=== PATIENT | female | born 1950 | race Caucasian/White ===

== ENCOUNTER 2019-03-23 06:56 | Outpatient (CLI) | payer MEDICARE, SELFPAY ==
[2019-03-23 08:01] LABS: Hemoglobin A1C 6.5 % (<5.7)
[2019-03-23 08:20] LABS: Alanine Aminotransferase 27 U/L (4-35); Albumin Level 4.4 g/dL (3.5-5.1); Alkaline Phosphatase 70 U/L (38-126); Aspartate Amino Transferase 24 U/L (14-36); Bilirubin,Total 0.4 mg/dL (0.2-1.3); Blood Urea Nitrogen 25 mg/dL (7-17); Calcium 9.2 mg/dL (8.4-10.2); Carbon Dioxide 27 mmol/L (22-30); Chloride 100 mmol/L (98-107); Cholesterol 139 mg/dL (0-200); Estimated Glomerular Filt Rate 44; Glucose 123 mg/dL (65-105); HDL Direct 33 mg/dL; Potassium 4.1 mmol/L (3.4-5.0); Sodium 141 mmol/L (137-145); Triglycerides 162 mg/dL (<150)
[2019-03-23 08:31] LABS: LDL Cholesterol Direct 79 mg/dL
== END 2019-03-23 06:57 | disposition home or self-care (01) ==
DX: E78.2 Mixed hyperlipidemia (principal); E11.9 Type 2 diabetes mellitus without complications; E66.9 Obesity, unspecified; I10 Essential (primary) hypertension
CPT/HCPCS: 36415; 80053; 80061; 82607; 83036; 84443

== ENCOUNTER 2021-01-06 06:45 | Outpatient (CLI) | payer MEDICARE, SELFPAY ==
[2021-01-06 08:44] LABS: Basophils Absolute Auto 0.1 K/mm3 (0.0-0.1); Basophils Percent Auto 0.9 % (0.2-1.2); Eosinophils Absolute Auto 0.2 K/mm3 (0-0.3); Eosinophils Percent Auto 2.3 % (0-4.4); Hematocrit 43.8 % (37.0-47.0); Hemoglobin 14.6 g/dL (12.0-15.0); Immature Granulocyte Absolute 0.04 K/mm3 (0.00-0.031); Immature Granulocyte Percent A 0.6 % (0-0.5); Lymphocytes Absolute Auto 2.26 K/mm3 (0.9-3.2); Lymphocytes Percent Auto 32.4 % (18.3-44.2); Mean Corpuscular HGB Conc 33.3 g/dl (32-36); Mean Corpuscular Hemoglobin 32.4 pg (26-34); Mean Corpuscular Volume 97.3 fl (80-100); Mean Platelet Volume 10.7 fl (7.4-10.4); Monocytes Absolute Auto 0.6 K/mm3 (0.1-0.6); Monocytes Percent Auto 8.3 % (2.6-8.5); Neutrophils Absolute Auto 3.9 K/mm3 (1.3-6.7); Neutrophils Percent Auto 55.5 % (45.5-73.1); Platelet Count Result 212 k/mm3 (150-375); Red Cell Distribution Width 13.1 % (11.5-14.5)
[2021-01-06 09:01] LABS: Add Urine Microscopic? YES; Appearance Urine Cloudy (Clear); Bacteria Urine 2+ /hpf; Bilirubin Urine Negative (Negative); Blood Urine 1+ (Negative); Color Urine Yellow (Yellow); Glucose Urine UA Negative (Negative); Ketones Urine Negative (Negative); Leukocyte Esterase Ur 3+ LEU/UL (NEGATIVE); Mucus Urine Rare /lpf; Nitrate Urine Positive (Negative); Protein Urine Negative (Negative); Specific Grav Ur 1.015 (1.001-1.035); Squamous Epithelial Cell Urine Rare /hpf (Few); Urobilinogen Urine Negative mg/dL (<2.0); WBC Clumps Urine Present /HPF; WBC Urine >75 /hpf (0-3)
[2021-01-06 09:08] LABS: Alanine Aminotransferase 31 U/L (4-35); Albumin Level 4.4 g/dL (3.5-5.1); Alkaline Phosphatase 84 U/L (38-126); Anion Gap 7 mmol/L (8-16); Aspartate Amino Transferase 26 U/L (14-36); Bilirubin,Total 0.5 mg/dL (0.2-1.3); Blood Urea Nitrogen 26 mg/dL (7-17); Calcium 9.3 mg/dL (8.4-10.2); Carbon Dioxide 29 mmol/L (22-30); Chloride 103 mmol/L (98-107); Cholesterol 141 mg/dL (0-200); Estimated Glomerular Filt Rate 37; Glucose 154 mg/dL (65-110); HDL Direct 29 mg/dL; Potassium 4.4 mmol/L (3.4-5.0); Sodium 139 mmol/L (137-145); Triglycerides 162 mg/dL (<150)
[2021-01-06 09:31] LABS: LDL Cholesterol Direct 86 mg/dL
[2021-01-06 09:58] LABS: Hemoglobin A1C 6.5 % (<5.7)
== END 2021-01-06 06:46 | disposition home or self-care (01) ==
LOC: ANHLAB 06:49
PROVIDERS: Visit Provider Family Medicine Sports Medicine
DX: E78.5 Hyperlipidemia, unspecified (principal); E11.9 Type 2 diabetes mellitus without complications; I10 Essential (primary) hypertension
CPT/HCPCS: 36415; 80053; 80061; 81001; 83036; 84443; 85025

== ENCOUNTER 2022-02-17 06:40 | Outpatient (CLI) | payer MEDICARE, SELFPAY ==
[2022-02-17 07:41] LABS: Basophils Absolute Auto 0.1 K/mm3 (0.0-0.1); Eosinophils Absolute Auto 0.2 K/mm3 (0-0.3); Eosinophils Percent Auto 3.2 % (0-4.4); Hematocrit 43.9 % (37.0-47.0); Hemoglobin 14.2 g/dL (12.0-15.0); Immature Granulocyte Absolute 0.04 K/mm3 (0.00-0.031); Immature Granulocyte Percent A 0.6 % (0-0.5); Lymphocytes Absolute Auto 1.94 K/mm3 (0.9-3.2); Mean Corpuscular HGB Conc 32.3 g/dl (32-36); Mean Corpuscular Hemoglobin 31.1 pg (26-34); Mean Corpuscular Volume 96.1 fl (80-100); Monocytes Absolute Auto 0.6 K/mm3 (0.1-0.6); Monocytes Percent Auto 8.9 % (2.6-8.5); Neutrophils Absolute Auto 3.5 K/mm3 (1.3-6.7); Neutrophils Percent Auto 55.3 % (45.5-73.1); Platelet Count Result 203 k/mm3 (150-375); Red Blood Count 4.57 M/mm3 (4.2-5.4); Red Cell Distribution Width 14.5 % (11.5-14.5); White Blood Count 6.3 K/mm3 (4.5-10.0)
[2022-02-17 07:51] LABS: Alanine Aminotransferase 37 U/L (6-35); Albumin Level 4.5 g/dL (3.5-5.1); Alkaline Phosphatase 74 U/L (38-126); Anion Gap 9 mmol/L (8-16); Aspartate Amino Transferase 26 U/L (14-36); Bilirubin,Total 0.5 mg/dL (0.2-1.3); Blood Urea Nitrogen 26 mg/dL (7-17); Calcium 8.8 mg/dL (8.4-10.2); Carbon Dioxide 27 mmol/L (22-30); Chloride 105 mmol/L (98-107); Cholesterol 166 mg/dL (0-200); Estimated Glomerular Filt Rate 40; Glucose 166 mg/dL (65-110); HDL Direct 34 mg/dL; Potassium 4.3 mmol/L (3.4-5.0); Sodium 141 mmol/L (137-145); Triglycerides 187 mg/dL (<150)
[2022-02-17 07:53] LABS: Add Urine Microscopic? YES; Appearance Urine Cloudy (Clear); Bilirubin Urine Negative (Negative); Blood Urine 1+ (Negative); Color Urine Yellow (Yellow); Glucose Urine UA Negative (Negative); Ketones Urine Negative (Negative); Leukocyte Esterase Ur 1+ LEU/UL (Negative); Nitrate Urine Negative (Negative); Protein Urine Trace mg/dL (Negative); Specific Grav Ur 1.025 (1.001-1.035); Urobilinogen Urine 0.2 mg/dL (<2.0)
[2022-02-17 08:02] LABS: LDL Cholesterol Direct 85 mg/dL
[2022-02-17 08:39] LABS: Bacteria Urine 1+ /hpf; Mucus Urine Rare /lpf; Squamous Epithelial Cell Urine Moderate /hpf (Few); WBC Clumps Urine Present /HPF; WBC Urine >75 /hpf
[2022-02-17 08:57] LABS: Folic Acid 10.3 ng/mL (2.76->20)
== END 2022-02-17 06:41 | disposition home or self-care (01) ==
PROVIDERS: Visit Provider Family Medicine Sports Medicine
DX: R53.83 Other fatigue (principal); I10 Essential (primary) hypertension; E78.5 Hyperlipidemia, unspecified
CPT/HCPCS: 36415; 80053; 80061; 81001; 82607; 82746; 84443; 85025; 87077; 87086; 87186

== ENCOUNTER 2022-08-20 07:55 | Outpatient (CLI) | payer MEDICARE, SELFPAY ==
[2022-08-20 09:03] LABS: Basophils Absolute Auto 0.1 K/mm3 (0.0-0.1); Eosinophils Absolute Auto 0.2 K/mm3 (0-0.3); Eosinophils Percent Auto 2.8 % (0-4.4); Hematocrit 43.3 % (37.0-47.0); Hemoglobin 14.2 g/dL (12.0-15.0); Immature Granulocyte Absolute 0.05 K/mm3 (0.00-0.031); Immature Granulocyte Percent A 0.7 % (0-0.5); Lymphocytes Percent Auto 35.4 % (18.3-44.2); Mean Corpuscular HGB Conc 32.8 g/dl (32-36); Mean Corpuscular Hemoglobin 30.9 pg (26-34); Mean Corpuscular Volume 94.3 fl (80-100); Mean Platelet Volume 10.1 fl (7.4-10.4); Monocytes Absolute Auto 0.5 K/mm3 (0.1-0.6); Monocytes Percent Auto 7.8 % (2.6-8.5); Neutrophils Absolute Auto 3.5 K/mm3 (1.3-6.7); Neutrophils Percent Auto 52.3 % (45.5-73.1); Platelet Count Result 216 k/mm3 (150-375); Red Blood Count 4.59 M/mm3 (4.2-5.4); Red Cell Distribution Width 14.1 % (11.5-14.5); White Blood Count 6.8 K/mm3 (4.5-10.0)
[2022-08-20 09:08] LABS: Appearance Urine Clear (Clear); Bacteria Urine Rare /hpf; Bilirubin Urine Negative (Negative); Blood Urine Negative (Negative); Color Urine Yellow (Yellow); Glucose Urine UA Negative (Negative); Ketones Urine Negative (Negative); Leukocyte Esterase Ur 2+ LEU/UL (Negative); Nitrate Urine Negative (Negative); Protein Urine Negative (Negative); RBC Urine 0-2 /hpf (0-2); Specific Grav Ur 1.014 (1.001-1.035); Squamous Epithelial Cell Urine Few /hpf (Few); Urobilinogen Urine 0.2 mg/dL (<2.0); WBC Urine 51-100 /hpf; pH Urine 5.5 (5.0-9.0)
[2022-08-20 09:11] LABS: Add Urine Microscopic? YES
[2022-08-20 09:22] LABS: Alanine Aminotransferase 31 U/L (6-35); Albumin Level 4.5 g/dL (3.5-5.1); Alkaline Phosphatase 87 U/L (38-126); Anion Gap 8 mmol/L (8-16); Aspartate Amino Transferase 26 U/L (14-36); Bilirubin,Total 0.4 mg/dL (0.2-1.3); Blood Urea Nitrogen 33 mg/dL (7-17); Calcium 8.8 mg/dL (8.4-10.2); Carbon Dioxide 25 mmol/L (22-30); Chloride 104 mmol/L (98-107); Cholesterol 132 mg/dL (0-200); Estimated Glomerular Filt Rate 37; Glucose 144 mg/dL (65-110); HDL Direct 31 mg/dL; Potassium 4.6 mmol/L (3.4-5.0); Sodium 137 mmol/L (137-145); Triglycerides 130 mg/dL (<150)
[2022-08-20 09:24] LABS: Hemoglobin A1C 7.2 % (<5.7)
[2022-08-20 09:35] LABS: LDL Cholesterol Direct 70 mg/dL
[2022-08-20 09:36] LABS: Free T4 Free Thyroxine 1.21 ng/mL (0.78-2.19)
[2022-08-20 09:38] LABS: Creatinine Urine 73.9 mg/dL
[2022-08-20 09:42] LABS: MALB Creatinine Ratio 46.3 mg/g (0-30); Microalbumin Urine Random 34.2 mg/L (0-16.7)
[2022-08-20 10:25] LABS: Folic Acid 4.8 ng/mL (2.76->20)
== END 2022-08-20 07:56 | disposition home or self-care (01) ==
DX: N39.0 Urinary tract infection, site not specified (principal); I10 Essential (primary) hypertension; F41.9 Anxiety disorder, unspecified; R73.09 Other abnormal glucose
CPT/HCPCS: 36415; 80053; 80061; 81001; 82043; 82607; 82746; 83036; 84439; 84443; 85025; 87086; 87088

== ENCOUNTER 2022-12-03 06:50 | Outpatient (CLI) | payer MEDICARE, SELFPAY ==
[2022-12-03 07:40] LABS: Basophils Absolute Auto 0.1 K/mm3 (0.0-0.1); Basophils Percent Auto 1.1 % (0.2-1.2); Eosinophils Absolute Auto 0.2 K/mm3 (0-0.3); Eosinophils Percent Auto 2.4 % (0-4.4); Hematocrit 44.2 % (37.0-47.0); Hemoglobin 14.3 g/dL (12.0-15.0); Immature Granulocyte Absolute 0.03 K/mm3 (0.00-0.031); Immature Granulocyte Percent A 0.5 % (0-0.5); Lymphocytes Absolute Auto 2.01 K/mm3 (0.9-3.2); Lymphocytes Percent Auto 30.7 % (18.3-44.2); Mean Corpuscular HGB Conc 32.4 g/dl (32-36); Mean Corpuscular Hemoglobin 30.7 pg (26-34); Mean Corpuscular Volume 94.8 fl (80-100); Mean Platelet Volume 9.9 fl (7.4-10.4); Monocytes Absolute Auto 0.6 K/mm3 (0.1-0.6); Monocytes Percent Auto 8.6 % (2.6-8.5); Neutrophils Absolute Auto 3.7 K/mm3 (1.3-6.7); Neutrophils Percent Auto 56.7 % (45.5-73.1); Platelet Count Result 220 k/mm3 (150-375); Red Blood Count 4.66 M/mm3 (4.2-5.4); Red Cell Distribution Width 14.8 % (11.5-14.5); White Blood Count 6.5 K/mm3 (4.5-10.0)
[2022-12-03 07:51] LABS: Alanine Aminotransferase 33 U/L (6-35); Albumin Level 4.6 g/dL (3.5-5.1); Alkaline Phosphatase 69 U/L (38-126); Anion Gap 8 mmol/L (8-16); Aspartate Amino Transferase 30 U/L (14-36); Bilirubin,Total 0.5 mg/dL (0.2-1.3); Blood Urea Nitrogen 24 mg/dL (7-17); Carbon Dioxide 26 mmol/L (22-30); Chloride 103 mmol/L (98-107); Cholesterol 130 mg/dL (0-200); Estimated Glomerular Filt Rate 44; Glucose 133 mg/dL (65-110); HDL Direct 31 mg/dL; Phosphorus 3.9 mg/dL (2.5-4.5); Potassium 4.6 mmol/L (3.4-5.0); Sodium 137 mmol/L (137-145); Triglycerides 106 mg/dL (<150)
[2022-12-03 07:54] LABS: Hemoglobin A1C 6.2 % (<5.7)
[2022-12-03 08:01] LABS: LDL Cholesterol Direct 72 mg/dL
[2022-12-03 08:07] LABS: Appearance Urine Cloudy (Clear); Bacteria Urine Rare /hpf; Bilirubin Urine Negative (Negative); Blood Urine Negative (Negative); Color Urine Yellow (Yellow); Glucose Urine UA Negative (Negative); Ketones Urine Negative (Negative); Leukocyte Esterase Ur 2+ LEU/UL (Negative); Nitrate Urine Negative (Negative); Non Pathogenic Casts 0-2; Protein Urine 1+ mg/dL (Negative); RBC Urine 0-2 /hpf (0-2); Specific Grav Ur 1.015 (1.001-1.035); Squamous Epithelial Cell Urine Occasional /hpf (Few); Urobilinogen Urine 0.2 mg/dL (<2.0); WBC Urine 21-50 /hpf
[2022-12-03 08:17] LABS: Free T4 Free Thyroxine 1.29 ng/mL (0.78-2.19); Vitamin D 25 Hydroxy 35.6 ng/mL
[2022-12-03 08:22] LABS: Add Urine Microscopic? YES
[2022-12-03 08:58] LABS: Vitamin B12 > 1000.0 pg/mL (239-931)
== END 2022-12-03 06:51 | disposition home or self-care (01) ==
PROVIDERS: Visit Provider Family Medicine Sports Medicine
DX: I12.9 Hypertensive chronic kidney disease with stage 1 through stage 4 chronic kidney disease, or unspecified chronic kidney disease (principal); N18.9 Chronic kidney disease, unspecified; E11.22 Type 2 diabetes mellitus with diabetic chronic kidney disease; F41.9 Anxiety disorder, unspecified; E55.9 Vitamin D deficiency, unspecified; N17.9 Acute kidney failure, unspecified
CPT/HCPCS: 36415; 80053; 80061; 81001; 82306; 82607; 82746; 83036; 84100; 84439; 84443; 85025; 87077; 87086; 87186

== ENCOUNTER 2023-05-04 06:40 | Outpatient (CLI) | payer MEDICARE, SELFPAY ==
[2023-05-04 07:14] LABS: Basophils Absolute Auto 0.1 K/mm3 (0.0-0.1); Eosinophils Absolute Auto 0.2 K/mm3 (0-0.3); Hematocrit 44.3 % (37.0-47.0); Hemoglobin 14.1 g/dL (12.0-15.0); Immature Granulocyte Absolute 0.05 K/mm3 (0.00-0.031); Immature Granulocyte Percent A 0.6 % (0-0.5); Lymphocytes Absolute Auto 2.82 K/mm3 (0.9-3.2); Lymphocytes Percent Auto 36.3 % (18.3-44.2); Mean Corpuscular HGB Conc 31.8 g/dl (32-36); Mean Corpuscular Hemoglobin 30.4 pg (26-34); Mean Corpuscular Volume 95.5 fl (80-100); Mean Platelet Volume 10.2 fl (7.4-10.4); Monocytes Absolute Auto 0.7 K/mm3 (0.1-0.6); Neutrophils Absolute Auto 3.9 K/mm3 (1.3-6.7); Neutrophils Percent Auto 50.1 % (45.5-73.1); Platelet Count Result 219 k/mm3 (150-375); Red Blood Count 4.64 M/mm3 (4.2-5.4); Red Cell Distribution Width 14.2 % (11.5-14.5); White Blood Count 7.8 K/mm3 (4.5-10.0)
[2023-05-04 07:22] LABS: Albumin Level 4.4 g/dL (3.5-5.1); Anion Gap 6 mmol/L (8-16); Blood Urea Nitrogen 29 mg/dL (7-17); Carbon Dioxide 28 mmol/L (22-30); Chloride 104 mmol/L (98-107); Estimated Glomerular Filt Rate 34; Glucose 140 mg/dL (65-110); Phosphorus 4.3 mg/dL (2.5-4.5); Potassium 4.4 mmol/L (3.4-5.0); Sodium 138 mmol/L (137-145)
[2023-05-04 08:47] LABS: Appearance Urine Clear (Clear); Bacteria Urine None Seen /hpf; Bilirubin Urine Negative (Negative); Blood Urine Negative (Negative); Color Urine Yellow (Yellow); Glucose Urine UA Negative (Negative); Ketones Urine Negative (Negative); Leukocyte Esterase Ur Trace LEU/UL (Negative); Nitrate Urine Negative (Negative); Non Pathogenic Casts 0-2; Protein Urine Trace mg/dL (Negative); RBC Urine 0-2 /hpf (0-2); Specific Grav Ur 1.015 (1.001-1.035); Squamous Epithelial Cell Urine None Seen /hpf (Few); Urobilinogen Urine 0.2 mg/dL (<2.0); WBC Urine 0-5 /hpf (0-3)
[2023-05-04 09:01] LABS: Add Urine Microscopic? YES
== END 2023-05-04 06:41 | disposition home or self-care (01) ==
DX: I10 Essential (primary) hypertension (principal); N17.9 Acute kidney failure, unspecified
CPT/HCPCS: 36415; 80069; 85025

== ENCOUNTER 2023-06-29 12:34 | Outpatient (CLI) | payer MEDICARE, SELFPAY ==
--- NOTE | ~2023-06-29 | US_ITS ---
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 TECHNIQUE: Grayscale, color Doppler, and pulsed Doppler images of the cervical carotid arteries were obtained. The degree of vessel stenosis is placed in one of the following categories: normal, <50%, 5 0-69%, >=70% but less than near-occlusion, near-occlusion, or total occlusion. Note that percent sten osis relative to normal distal artery lumen diameter is indirectly measured from velocity measurement s as described by Rei, et al. Radiology 2003; 229:340-346. COMPARISON: None. FINDINGS: RIGHT: The right common carotid artery (CCA) peak systolic velocity (PSV) is 69 cm/s. The right internal car otid artery (ICA) PSV is 135 cm/s. The right ICA end-diastolic velocity (EDV) is 18 cm/s. The right I CA/CCA PSV ratio is 2.0. Grayscale and color Doppler images yield an estimate of >=50% diameter reduc tion from plaque in the ICA. There is antegrade flow in the right vertebral artery. LEFT: The left CCA PSV is 91 cm/s. The left ICA PSV is 85 cm/s. The left ICA EDV is 18 cm/s. The left ICA/C CA PSV ratio is 0.9. Grayscale and color Doppler images yield an estimate of <50% diameter reduction from plaque in the ICA. There is antegrade flow in the left vertebral artery. IMPRESSION: 1. 50-69% stenosis in the right internal carotid artery. 2. <50% stenosis in the left internal carotid artery. Reviewed, dictated and finalized at location A.
== END 2023-06-29 12:35 | disposition home or self-care (01) ==
PROVIDERS: Visit Provider Nurse Practitioner
DX: I25.10 Atherosclerotic heart disease of native coronary artery without angina pectoris (principal); F17.200 Nicotine dependence, unspecified, uncomplicated; H34.8190 Central retinal vein occlusion, unspecified eye, with macular edema; E78.5 Hyperlipidemia, unspecified; I10 Essential (primary) hypertension; I65.23 Occlusion and stenosis of bilateral carotid arteries
CPT/HCPCS: 93880

== ENCOUNTER 2023-07-07 14:16 | Outpatient (CLI) | payer MEDICARE, SELFPAY ==
--- NOTE | 2023-07-07 | ECHO_ITS ---
Patient Info Name: Irene Badillo Age: 73 years : 1950 Gender: Female Ht: 68 in Wt: 215 lbs BSA: 2.20 m2 HR: 68 bpm BP: 140 / 77 mmHg Heart Rhythm: Sinus Rhythm Technical Quality: Good Exam Date: 07/07/2023 2:50 PM Exam Location: Echo Lab Patient Status: Outpatient Admit Date: 07/07/2023 Staff Ordering Physician: Fam*Magnolia APRN Target Trimmer: Tim Marie RDCS Attending Provider: Fam*Magnolia APRN Referring Physician: Jessica SERRANO; Exam Type: CA echo doppler color flow Study Info Indications - hemispheric ROVO w/ macular edema Complete two-dimensional, color flow and Doppler transthoracic echocardiogram is performed. Summary 1. Left ventricular chamber dimension is normal. 2. Left ventricular systolic function is normal, estimated at 60-65%. 3. There is mildly increased left ventricular wall thickness. 4. The left ventricular diastolic function is grade I diastolic dysfunction. 5. Right ventricular systolic function is normal. 6. No significant valvular disease. Left Ventricle Left ventricular chamber dimension is normal. Left ventricular systolic function is normal, estimated at 60-65%. There is mildly increased left ventricular wall thickness. The left ventricular diastolic function is grade I diastolic dysfunction. Right Ventricle Right ventricular chamber dimension is normal. Right ventricular systolic function is normal. Left Atria Left atrial chamber dimension is normal. Right Atria Right atrial chamber dimension is normal. Atrial Septum Intact interatrial septum visualized by color flow imaging. Aortic Valve The aortic valve is not well visualized. There is no aortic valve stenosis. There is no aortic valve regurgitation. Pulmonic Valve The pulmonic valve is not well visualized. Mitral Valve There is trace mitral valve regurgitation. Tricuspid Valve There is trace tricuspid valve regurgitation. Pericardium/Pleural There is no pericardial effusion. Inferior Vena Cava Normal inferior vena cava with >50% collapse upon inspiration consistent with normal right atrial pressure, 3 mmHg. Aorta The aortic root size at the sinus of Valsalva is normal. Left Ventricular Outflow Tract Name Value Normal LVOT 2D LVOT Diameter 2.0 cm LVOT Doppler LVOT Peak Gradient 10 mmHg LVOT Mean Gradient 5 mmHg LVOT VTI 33 cm LVOT VTI/AV VTI Ratio 0.9 LVOT Stroke Volume 101 ml LVOT CO 7.1 l/min LVOT CI 3.2 l/min/m2 Pulmonic Valve Name Value Normal PV Doppler PV Peak Gradient 6 mmHg Mitral Valve Name Value Normal
== END 2023-07-07 14:17 | disposition home or self-care (01) ==
PROVIDERS: Visit Provider Nurse Practitioner
DX: I25.10 Atherosclerotic heart disease of native coronary artery without angina pectoris (principal); I11.9 Hypertensive heart disease without heart failure; F17.200 Nicotine dependence, unspecified, uncomplicated; H34.8190 Central retinal vein occlusion, unspecified eye, with macular edema; E78.5 Hyperlipidemia, unspecified
CPT/HCPCS: 93306

== ENCOUNTER 2023-08-16 06:59 | Outpatient (CLI) | payer MEDICARE, SELFPAY ==
[2023-08-16 08:04] LABS: Basophils Absolute Auto 0.1 K/mm3 (0.0-0.1); Eosinophils Absolute Auto 0.2 K/mm3 (0-0.3); Hematocrit 42.8 % (37.0-47.0); Hemoglobin 14.1 g/dL (12.0-15.0); Immature Granulocyte Absolute 0.04 K/mm3 (0.00-0.031); Immature Granulocyte Percent A 0.5 % (0-0.5); Lymphocytes Absolute Auto 2.67 K/mm3 (0.9-3.2); Lymphocytes Percent Auto 34.9 % (18.3-44.2); Mean Corpuscular HGB Conc 32.9 g/dl (32-36); Mean Corpuscular Hemoglobin 30.8 pg (26-34); Mean Corpuscular Volume 93.4 fl (80-100); Mean Platelet Volume 10.5 fl (7.4-10.4); Monocytes Absolute Auto 0.6 K/mm3 (0.1-0.6); Monocytes Percent Auto 8.2 % (2.6-8.5); Neutrophils Percent Auto 52.4 % (45.5-73.1); Platelet Count Result 226 k/mm3 (150-375); Red Blood Count 4.58 M/mm3 (4.2-5.4); Red Cell Distribution Width 14.6 % (11.5-14.5); White Blood Count 7.7 K/mm3 (4.5-10.0)
[2023-08-16 08:13] LABS: Alanine Aminotransferase 28 U/L (6-35); Albumin Level 4.7 g/dL (3.5-5.1); Alkaline Phosphatase 76 U/L (38-126); Anion Gap 10 mmol/L (4-12); Aspartate Amino Transferase 24 U/L (14-36); Bilirubin,Total 0.5 mg/dL (0.2-1.3); Blood Urea Nitrogen 32 mg/dL (7-17); Carbon Dioxide 24 mmol/L (22-30); Chloride 106 mmol/L (98-107); Cholesterol 136 mg/dL (0-200); Estimated Glomerular Filt Rate 31; Glucose 134 mg/dL (65-110); HDL Direct 32 mg/dL; Phosphorus 4.3 mg/dL (2.5-4.5); Potassium 4.1 mmol/L (3.4-5.0); Sodium 140 mmol/L (137-145); Triglycerides 144 mg/dL (<150)
[2023-08-16 08:25] LABS: LDL Cholesterol Direct 81 mg/dL
[2023-08-16 08:33] LABS: Hemoglobin A1C 6.3 % (<5.7)
[2023-08-16 09:04] LABS: Appearance Urine Cloudy (Clear); Bacteria Urine 4+ /hpf; Bilirubin Urine Negative (Negative); Blood Urine Trace (Negative); Color Urine Yellow (Yellow); Glucose Urine UA Negative (Negative); Ketones Urine Negative (Negative); Leukocyte Esterase Ur 3+ LEU/UL (Negative); Nitrate Urine Negative (Negative); Non Pathogenic Casts 0-2; Protein Urine Negative (Negative); RBC Urine 0-2 /hpf (0-2); Specific Grav Ur 1.012 (1.001-1.035); Squamous Epithelial Cell Urine None Seen /hpf (Few); Urobilinogen Urine 0.2 mg/dL (<2.0); WBC Urine >100 /hpf (0-3); pH Urine 5.5 (5.0-9.0)
[2023-08-16 09:18] LABS: Add Urine Microscopic? YES
[2023-08-16 09:19] LABS: Folic Acid 4.9 ng/mL (2.76->20)
[2023-08-16 10:09] LABS: Vitamin D 25 Hydroxy 26.6 ng/mL
== END 2023-08-16 07:00 | disposition home or self-care (01) ==
PROVIDERS: PCP Family Medicine; Referring Provider Nurse Practitioner
DX: E55.9 Vitamin D deficiency, unspecified (principal); E11.9 Type 2 diabetes mellitus without complications; N18.30 Chronic kidney disease, stage 3 unspecified; E66.9 Obesity, unspecified; R53.83 Other fatigue; Z13.21 Encounter for screening for nutritional disorder
CPT/HCPCS: 36415; 80053; 80061; 81001; 82306; 82607; 82746; 83036; 84100; 84443; 85025; 87077; 87086; 87088; 87186

== ENCOUNTER 2023-11-03 18:52 | Emergency (ER) | payer MEDICARE, SELFPAY ==
--- NOTE | ~2023-11-03 | XR_ITS ---
[id number] Ordering provider: Alexandra Mejia NP History: . fall injury, rt side pain around breast area . Comparison: None. FINDINGS: BONES: No acute right rib fracture or fracture of the visualized osseous structures. LUNGS: No effusions or infiltrates. No pneumothorax. SOFT TISSUES: Normal. IMPRESSION: No right rib fracture (Note: subtle/nondisplaced rib fractures can be occult on plain films and if th ere is continued clinical suspicion for rib fracture, recommend follow up CT chest). Reviewed, dictated and finalized at location A. IMPRESSION: No right rib fracture (Note: subtle/nondisplaced rib fractures can be occult on plain films and if there is continued clinical suspicion for rib fracture, rec ommend follow up CT chest).
[2023-11-03 19:01] VITALS: BP 129/62; PULSE 67; RESP 16; TEMP 36.3; O2SAT 98
--- NOTE | 2023-11-03 19:14 | ED.FALL ---
HPI - Fall General Chief Complaint: Fall Stated Complaint: FALL/R SIDE PAIN Time Seen by Provider: 11/03/23 19:12 Source: patient, RN notes reviewed and old records reviewed Mode of arrival: ambulatory Limitations: no limitations History of Present Illness HPI Narrative: 73 year old female accompanied by spouse presents to express care with complaints of falling in her garden on Wednesday 6 days ago lost her balance and hitting right side on ground. Patient reports that for the past 4 days she has had tenderness to her right breast and to lateral rib area with sharp pains at times with deep breathing and movement. Patient reports that she sneezed and pain was intense. Patient has no redness or bruising noted to chest or breast area but some palpable tenderness. Patient reports no shortness of breath, chest pain or any difficulty breathing. Ptient reports no pain at rest, denies hitting her head or any LOC at time of fall or any dizziness prior to fall. Patient reports that she has been taking Tylenol for her discomfort MD complaint: fall Onset (ago): day(s) (4) Fall from: standing Place fall occurred: home (outside in garden) Loss of consciousness: none Severity scale (1-10): 5 (with activity) Related Data Home Medications Medication Instructions Recorded Confirmed amlodipine 10 mg tablet 10 mg PO DAILY 11/03/23 11/03/23 atorvastatin 20 mg tablet 20 mg PO DAILY 11/03/23 11/03/23 metformin 500 mg tablet 500 mg PO BID 11/03/23 11/03/23 metoprolol succinate 100 mg 100 mg PO DAILY 11/03/23 11/03/23 tablet,extended release 24 hr olmesartan 40 1 tablet PO DAILY 11/03/23 11/03/23 mg-hydrochlorothiazide 12.5 mg tablet Allergies Allergy/AdvReac Type Severity Reaction Status Date / Time Sulfa (Sulfonamide Allergy Mild Unknown Unverified 11/03/23 19:10 Antibiotics) Review of Systems Review of Systems: CONSTITUTIONAL: Denies fever, chills, or sweats. EYES: Denies visual changes, redness, or discharge. ENT: Denies rhinorrhea, congestion, sore throat, or otalgia. CARDIOVASCULAR: Denies chest pain, palpitations, or edema. RESPIRATORY: Denies cough or dyspnea.states increased pain to lateral right ribs with deep breathing GASTROINTESTINAL: Denies abdominal pain, nausea, vomiting, or diarrhea. GENITOURINARY: Denies dysuria or hematuria. SKIN: Denies rash or itching. MUSCULOSKELETAL: Denies back pain,positive for pain to right breast and to right side of chest laterally along ribs or myalgia. NEUROLOGIC: Denies headache, numbness, or weakness. PSYCHIATRIC: Denies anxiety or depression. All systems reviewed & are unremarkable except as noted in HPI and below PMFSH Past Medical History Medical History (Updated 11/05/23 @ 12:34 by Alexandra Mejia NP) Diabetes Diverticulitis Gout Hyperlipidemia Hypertension Social History Social History (Updated 11/05/23 @ 12:28 by Alexandra Mejia NP) Smoking packs per day: 1 Smoking cigarettes per day: 20.0 Years smoked: 35 Smoking pack-years: 35.00 Smoking status: Current every day smoker Tobacco type: cigarettes Alcohol intake: current Alcohol use details: social Substance use type: does not use Living arrangements: with family Gender identity (if verbalized by the patient): Female Comments At time of signature, agree with nursing past medical, surgical, social and family history. There is no relevant family history pertinent to the presenting complaint Exam Narrative: GENERAL: Well-appearing, well-nourished, and in no acute distress. HEAD: Normocephalic, atraumatic. EYES: PERRLA and EOMI. ENT: Nares clear, no rhinorrhea or epistaxis. Mucous membranes moist. NECK: Supple.no lymphadenopathy CHEST: Decreased to auscultation. No respiratory distress. no acute cough, tobacco history SAO2 98% on room air, pain to right lateral rib area and right breast from fall with movement and deep breathing, no tachypna HEART: Regular rate and rhythm. No murmur h
--- NOTE | 2023-11-03 20:20 | PC.NURSE ---
INCENTIVE SPIROMETER TEACHING PROVIDED. PT DEMONSTRATED WELL.
== END 2023-11-03 20:22 | disposition home or self-care (01) ==
PROVIDERS: Emergency Provider Registered Nurse; PCP Family Medicine
DX: S20.211A Contusion of right front wall of thorax, initial encounter (principal); W19.XXXA Unspecified fall, initial encounter; E11.9 Type 2 diabetes mellitus without complications; E78.5 Hyperlipidemia, unspecified; I10 Essential (primary) hypertension; M10.9 Gout, unspecified; F17.210 Nicotine dependence, cigarettes, uncomplicated
CPT/HCPCS: 71101; 99213; G0463

== ENCOUNTER 2023-12-13 06:47 | Outpatient (CLI) | payer MEDICARE, SELFPAY ==
[2023-12-13 07:44] LABS: Albumin Level 4.5 g/dL (3.5-5.1); Anion Gap 11 mmol/L (4-12); Blood Urea Nitrogen 23 mg/dL (7-17); Calcium 8.9 mg/dL (8.4-10.2); Carbon Dioxide 27 mmol/L (22-30); Chloride 104 mmol/L (98-107); Estimated Glomerular Filt Rate 40; Glucose 165 mg/dL (65-110); Potassium 4.3 mmol/L (3.4-5.0); Sodium 142 mmol/L (137-145)
[2023-12-13 08:01] LABS: Add Urine Microscopic? YES; Appearance Urine Turbid (Clear); Bacteria Urine 3+ /hpf; Bilirubin Urine Negative (Negative); Blood Urine 1+ (Negative); Color Urine Yellow (Yellow); Glucose Urine UA Negative (Negative); Ketones Urine Negative (Negative); Leukocyte Esterase Ur 3+ LEU/UL (Negative); Nitrate Urine Negative (Negative); Non Pathogenic Casts 0-2; Protein Urine Trace mg/dL (Negative); RBC Urine 0-2 /hpf (0-2); Specific Grav Ur 1.012 (1.001-1.035); Squamous Epithelial Cell Urine None Seen /hpf (Few); Urobilinogen Urine 0.2 mg/dL (<2.0); WBC Urine >100 /hpf (0-3); pH Urine 5.5 (5.0-9.0)
[2023-12-13 08:11] LABS: Basophils Absolute Auto 0.1 K/mm3 (0.0-0.1); Basophils Percent Auto 0.8 % (0.2-1.2); Eosinophils Absolute Auto 0.2 K/mm3 (0-0.3); Hematocrit 41.8 % (37.0-47.0); Hemoglobin 13.4 g/dL (12.0-15.0); Immature Granulocyte Absolute 0.05 K/mm3 (0.00-0.031); Immature Granulocyte Percent A 0.7 % (0-0.5); Lymphocytes Absolute Auto 1.89 K/mm3 (0.9-3.2); Lymphocytes Percent Auto 25.8 % (18.3-44.2); Mean Corpuscular HGB Conc 32.1 g/dl (32-36); Mean Corpuscular Hemoglobin 30.7 pg (26-34); Mean Corpuscular Volume 95.7 fl (80-100); Mean Platelet Volume 10.6 fl (7.4-10.4); Monocytes Absolute Auto 0.7 K/mm3 (0.1-0.6); Monocytes Percent Auto 9.3 % (2.6-8.5); Neutrophils Absolute Auto 4.5 K/mm3 (1.3-6.7); Neutrophils Percent Auto 61.4 % (45.5-73.1); Platelet Count Result 191 k/mm3 (150-375); Red Blood Count 4.37 M/mm3 (4.2-5.4); Red Cell Distribution Width 15.3 % (11.5-14.5); White Blood Count 7.3 K/mm3 (4.5-10.0)
== END 2023-12-13 06:48 | disposition home or self-care (01) ==
PROVIDERS: PCP Family Medicine
DX: N18.30 Chronic kidney disease, stage 3 unspecified (principal)
CPT/HCPCS: 36415; 80069; 81001; 85025; 87077; 87086; 87186

== ENCOUNTER 2024-02-22 07:00 | Outpatient (CLI) | payer MEDICARE, SELFPAY | END 2024-02-22 07:01 | disposition home or self-care (01) | PROVIDERS: PCP Family Medicine; Visit Provider Nurse Practitioner | DX: R94.6 Abnormal results of thyroid function studies (principal) | CPT/HCPCS: 36415; 84443 ==

== ENCOUNTER 2024-05-24 06:45 | Outpatient (CLI) | payer MEDICARE, SELFPAY ==
--- OUTSIDE RECORDS SUMMARY | 2024-05-24 06:55 | XMS_ITS | Clinical Summary ---
Author Organization [facility] Address [address] [place] [address] Phone Care Team Providers Care Stock Mixer Name Role Phone Ankur Aviles MD Primary Care Provider [phone] Allergies Active Allergy Reactions Criticality Noted Date Comments Sulfa (Sulfonamide Antibiotics) Other (See Comments) 10/12/2008 Feet-creepy, crawly on skin Medications escitalopram (LEXAPRO) 10 mg Oral Tab Take 10 mg by mouth daily. Active metoprolol succinate (TOPROL XL) 50 mg Oral Tb24 Take 50 mg by mouth 2 times daily. Active METOPROLOL SUCCINATE (TOPROL XL PO) Take 50 mg by mouth 2 times daily. Active hydrocodone-acet aminophen (VICODIN) 5-500 mg Oral Tab Take 1 Tab by mouth every 6 hours as needed for Pain. 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 Gender Identity Not on file Sexual Orientation Not on file Last Filed Vital Signs Vital Sign Reading Time Taken Comments Blood Pressure 150/92 11/30/2008 8:36 AM CDT Pulse 75 11/28/2008 6:15 PM CDT Temperature 36.4 C (97.5 F) 11/28/2008 6:01 PM CDT Respiratory Rate 18 11/28/2008 6:15 PM CDT Oxygen Saturation 95% 11/28/2008 6:15 PM CDT Inhaled Oxygen Concentration - - Weight 83 kg (183 lb) 11/28/2008 8:14 AM CDT Height 174 cm (5' 8.5 ) 11/27/2008 7:31 AM CDT Body Mass Index 27.42 11/27/2008 7:31 AM CDT Plan of Treatment Health Maintenance Due Date Last Done Comments DTAP/TDAP/TD VACCINES (1 - Tdap) 1967 PNEUMOCOCCAL VACCINE 50+ YEARS (1 of 2 - PCV) 03/20/18 68 ZOSTER VACCINE (1 of 2) 1998 OSTEOPOROSIS SCREENING 2013 RSV VACCINE (60+ or ) (1 - 1-dose 75+ series) 2023 INFLUENZA VACCINE (#1) 2023 COLORECTAL SCREENING Discontinued 11/27/2008 Colorectal Cancer Screening Discontinued FIT-DNA Q 3 years Discontinued FIT/FOBT Q 1 year Discontinued Flex Sig/CT Colonography Q 5 years Discontinued Insurance [employer] [facility] Address: [facility] [id number] [place] [address] Advance Directives For more information, please contact: [phone] * Full Code (Latest Code Status on File) Date Activated Date Inactivated Comments 11/28/2008 6:54 PM 11/30/2008 6:16 PM * Full Code Date Activated Date Inactivated Comments 11/28/2008 7:59 AM 11/28/2008 6:53 PM * Full Code Date Activated Date Inactivated Comments 11/27/2008 7:21 AM 11/28/2008 2:02 AM Care Teams Stock Mixer Relationship Specialty Start Date End Date Ankur Aviles MD [id number] [place] [id number] [facility] - General 10/12/08
--- OUTSIDE RECORDS SUMMARY | 2024-05-24 06:55 | XMS_ITS | Encounter Summary ---
Author Organization [employer] Address [address] [place] [address] Care Team Providers Care Hall Worker Name Role Phone Ankur Aviles MD Primary Care Provider Encounter Details Date Type Department Care Team (Late st Contact Info) Description 10/08/2008 Outpatient Historical [facility], Authorized P NO ADDRESS ON FILE Brandan Jarvis MD NO ADDRESS ON FILE Social History Tobacco Use Types Packs/Day Years Used Date Smoking Tobacco: Never Assessed Comments Unknown Sex and Gender Information Value Date Recorded Sex Assigned at Not on file Legal Sex Female 5:46 AM [employer] Gender Identity Not on file Sexual Orientation Not on file documented as of this encounter Plan of Treatment Not on file documented as of this encounter Procedures Procedure Name Priority Date/Time Associated Diagnosis Comments C. DIFFICILE DETECTION Timed Study 10/13/2008 3:[address] ABDOMEN PELVIS W CONTRAST Timed Study 10/13/2008 1:02 PM CDT CBC WITH DIFFERENTIAL Routine 10/12/2008 5:47 AM CDT C-REACTIVE PROTEIN Routine 10/12/2008 5: 47 AM CDT XR CONSULTATION Routine 10/10/2008 3:54 PM CDT IR VENOUS ACCESS Timed Study 10/10/2008 3:53 PM CDT US GUIDE VASCULAR ACCESS Timed Study 10/10/2008 3:53 PM CDT XR CONSULTATION Timed Study 10/10/2008 3:53 PM CDT POC GLUCOSE Routine 10/10/2008 11:54 AM CDT C-REACTIVE PROTEIN Routine 10/10/2008 5: 20 AM CDT ANAEROBIC/AEROBIC CULTURE W GRAM STAIN Routine 10/09/2008 3:00 PM CDT XR CONSULTATION Timed Study 10/09/2008 1:[address] GUIDED ASPIRATION Timed Study 10/09/2008 1:56 PM CDT CBC WITH DIFFERENTIAL Routine 10/09/2008 6:00 AM CDT C-REACTIVE PROTEIN Routine 10/09/2008 6: 00 AM CDT BASIC METABOLIC PANEL Routine 10/09/2008 6:00 AM CDT BLOOD CULTURE Timed Study 10/08/2008 8:30 PM CDT BLOOD CULTURE Timed Study 10/08/2008 8:14 PM CDT PT AND APTT Timed Study 10/08/2008 7:[address] ABDOMEN PELVIS W CONTRAST Routine 10/08/2008 10:00 AM CDT CBC WITH DIFFERENTIAL Stat 10/08/2008 7:50 AM CDT C-REACTIVE PROTEIN Stat 10/08/2008 7: 50 AM CDT COMPREHENSIVE METABOLIC PANEL Stat 10/08/2008 7:50 AM CDT URINALYSIS WITH REFLEX CULTURE Stat 10/08/2008 7:36 AM CDT URINALYSIS W/REFLEX MICROSCOPIC Stat 10/08/2008 7:36 AM CDT documented in this encounter Results * CLOSTRIDIUM DIFFICILE TOXIN (10/13/2008 3:20 PM CDT) FINAL REPORT NO Clostridium difficile Toxin A or B detected by EIA. A negative result does not rule out C. difficile associated diarrhea or colitis. [facility] 10/13/2008 3:20 PM CDT 10/13/2008 3:41 PM CDT Brandan Jarvis MD MICROBIOLOGY - [facility] Final Result INTERFACE SYSTEM Refer to clinic/hospital department [facility] CLIA# [id number] [address] [place] [address] * CT ABDOMEN PELVIS W CONTRAST (10/13/2008 1:02 PM CDT) Anatomical Region Laterality Modality Abdomen Other 10/13/2008 1:02 PM CDT Narrative 10/13/2008 6:20 PM CDT [facility] [address] [place], [place] [address] Admit Date: 10/08/2008 NASEEM BESS Justina Sex: F Admit Prov: BRANDAN JARVIS Date: 1950 Primary Care Prov: ANKUR AVILES Yuni CMRN: [id number] Room: [address] [place] [address] SSN: [id number] IMAGING SERVICES Ordering Prov: N/A Accession Number: [id number] Interpretation CT ABDOMEN AND PELVIS WITH IV CONTRAST 10/13/2008 INDICATION: Abdominal pain, evaluate abscess. TECHNIQUE: Multiple [address] images were acquired. Optiray-320 intravenous and oral contrast were administered. FINDINGS: Comparison is 10/08/2008. Inflammatory process is again identified in the left side of the pelvis adjacent to the sigmoid colon. The heterogeneous multiloculated presumed abscess has decreased in size. Previously seen air within it has resolved. Overall size of this has decreased and now measures roughly 5.4 x 3.0 cm in the axial plane compared to previously measuring 5.9 x 3.9 at a similar location. Adjacent thickening of the sigmoid colon and inflammation is similar in appearance. Again, the ureter is present passing posterior to this inflammatory process. Proximal ureter is mildly dilated with associated mild hydronephrosis. There is minimal delay in enhancement of the left kidney compared to the right side. A couple hypodense lesions within the right kidney are unchanged measuring up to roughly 8 mm. They are indeterminate on this study. The urinary bladder and uterus appear normal. Spleen, pancreas, and gallbladder are normal. Liver is unchanged with three scattered hypodensities which are subcentimeter in size. Moderate atherosclerotic calcifications are present in the aorta. IMPRESSION: 1. Decreased size of the multiloculated heterogeneous abscess in the left side of the pelvis associated most likely with diverticulitis. 2. Stable appearance of mild hydronephrosis of the left kidney probably due to some obstruction of urine flow related to adjacent inflammation of the pelvis. 3. Indeterminate scattered hypodensities in the liver and spleen which are not completely evaluated on this study. . Dictated by: MILA DOLAN 10/13/2008 13:21 Electronically signed by: MILA DOLAN 10/13/2008 18:18 Transcribed: 10/13/2008 16:08 SJ Procedure Note Mila Dolan - 10/13/2008 [facility] [address], [place] [address] Admit Date: 10/08/2008 NASEEM BESS Sex: F Admit Prov: BRANDAN JARVIS Date: 1950 Primary Care Prov: ANKUR AVILES CMRN: [id number] Room: [address] [place] [address] SSN: [id number] IMAGING SERVICES Ordering Prov: N/A Interpretation CT ABDOMEN AND PELVIS WITH IV CONTRAST 10/13/2008 INDICATION: Abdominal pain, evaluate abscess. TECHNIQUE: Multiple [address] images were acquired. Optiray-320 intravenous and oral contrast were administered. FINDINGS: Comparison is 10/08/2008. Inflammatory process is again identified in the left side of thepelvis adjacent to the sigmoid colon. The heterogeneous multiloculatedpresumed abscess has decreased in size. Previously seen air within it hasresolved. Overall size of this has decreased and now measures roughly 5.4 x 3.0cm in the axial plane compared to previously measuring 5.9 x 3.9 at asimilar location. Adjacent thickening of the sigmoid colon and inflammationis similar in appearance. Again, the ureter is present passing posteriorto this inflammatory process. Proximal ureter is mildly dilated with associated mild hydronephrosis. There is minimal delay in enhancementof the left kidney compared to the right side. A couple hypodenselesions within the right kidney are unchanged measuring up to roughly 8 mm.They are indeterminate on this study. The urinary bladder and uterus appear normal. Spleen, pancreas, and gallbladder are normal. Liver is unchanged with three scattered hypodensities which are subcentimeter in size. Moderateatherosclerotic calcifications are present in the aorta. IMPRESSION: 1. Decreased size of the multiloculated heterogeneous abscess in theleft side of the pelvis associated most likely with diverticulitis. 2. Stable appearance of mild hydronephrosis of the left kidneyprobably due to some obstruction of urine flow related to adjacent inflammation ofthe pelvis. 3. Indeterminate scattered hypodensities in the liver and spleenwhich are not completely evaluated on this study. . Dictated by: MILA DOLAN 10/13/2008 13:21 Electronically signed by: MILA DOLAN 10/13/2008 18:18 Transcribed: 10/13/2008 16:08 SJ Brandan Jarvis MD CT ORDERABLES Final Resul t * (ABNORMAL) C-REACTIVE PROTEIN (10/12/2008 5:47 AM CDT) Pathologist [facility] CRP 8.0(H) 0.0 - 0.8 mg/dL [facility] Blood specimen (specimen) 10/12/2008 5:47 AM CDT 10/12/2008 5:55 AM CDT Brandan Jarvis MD CHEMISTRY ORDERABLES Final Result [facility] CLIA# [id number] [address] [facility] [place] [address] * (ABNORMAL) CBC WITH DIFFERENTIAL (10/12/2008 5:47 AM CDT) Pathologist [facility] RDW 13.6 11.5 - 14.5 % [facility] WBC 4.7 4.0 - 9.8 K/uL [facility] MCH 29.2 27.2 - 32.6 pg [facility] MPV 9.6 9.3 - 12.4 fL [facility] HEMATOCRIT 29.3(L) 35.5 - 44.0 % [facility] RDW-STDEV 45.3 37.1 - 48.7 fL [facility] RBC 3.25(L) 3.90 - 4.90 M/uL [facility] MCHC 32.4 31.5 - 35.5 % [facility] MCV 90.2 82.0 - 99.0 fL [facility] PLATELETS 285 140 - 350 K/uL [facility] HEMOGLOBIN 9.5(L) 11.8 - 14.8 g/dL [facility] LYMPHOCYTES 42 16 - 45 % [facility] LYMPHOCYTE ABSOLUTE 1.94 0.70 - 4.50 K/uL [facility] BASOPHILS 1 0 - 2 % [facility] BASOPHILS ABSOLUTE 0.04 0.00 - 0.20 K/uL [facility] MONOCYTES 10 3 - 13 % [facility] MONOCYTE ABSOLUTE 0.45 0.10 - 1.30 K/uL [facility] NEUTROPHILS 44(L) 45 - 70 % [facility] NEUTROPHIL ABSOLUTE 2.07 1.90 - 7.00 K/uL [facility] EOSINOPHILS 4 0 - 7 % [facility] EOSINOPHIL ABSOLUTE 0.18 0.00 - 0.70 K/uL [facility] Blood specimen (specimen) 10/12/2008 5:47 AM CDT 10/12/2008 5:55 AM CDT us Brandan Jarvis MD HEMATOLOGY ORDERABLES Edite d [facility] CLIA# [id number] [address] [place] [address] * XR CONSULTATION (10/10/2008 3:54 PM CDT) 10/10/2008 3:54 PM CDT Narrative [facility] - 10/13/2008 9:59 PM CDT [facility] [address] [place], [place] [address] Admit Date: 10/08/2008 MARIA ALEJANDRA NASEEM Horn Sex: F Admit Prov: BRANDAN JARVIS Date: 1950 Primary Care Prov: ANKUR AVILES CMRN: [id number] Room: [address] [place] [address] 1 SSN: [id number] IMAGING SERVICES Ordering Prov: BRANDAN JARVIS Accession Number: [id number] Interpretation The procedure was performed by Radiology Department nursing staff. Dictated by: RADIOLOGY, DEPARTMENT O Electronically signed by: RADIOLOGY, DEPARTMENT 10/13/2008 20:44 Transcribed: 10/13/2008 18:56 AMK Procedure Note Radiology, Radiologist - 10/13/2008 [facility] [address] [place], [place] [address] Admit Date: 10/08/2008 NASEEM BESS Sex: F Admit Prov: BRANDAN JARVIS Date: 1950 Primary Care Prov: ANKUR AVILES CMRN: [id number] Room: [address] [place] [address] 1 SSN: [id number] IMAGING SERVICES Ordering Prov: BRANDAN JARVIS Interpretation The procedure was performed by Radiology Department nursing staff. Dictated by: RADIOLOGY, DEPARTMENT O Electronically signed by: RADIOLOGY, DEPARTMENT 10/13/2008 20:44 Transcribed: 10/13/2008 18:56 AMK us Brandan Jarvis MD DIAGNOSTIC IMAGING ORDERABL ES Final Result [facility] CLIA# [id number] [address] [place] [address] * XR CONSULTATION (10/10/2008 3:53 PM CDT) 10/10/2008 3:53 PM CDT Narrative [facility] - 10/13/2008 9:59 PM CDT [facility] [address] [place], [place] [address] Admit Date: 10/08/2008 NASEEM BESS Sex: F Admit Prov: BRANDAN JARVIS Date: 1950 Primary Care Prov: ANKUR AVILES CMRN: [id number] Room: [address] [place] [address] 1 SSN: [id number] IMAGING SERVICES Ordering Prov: BRANDAN JARVIS Accession Number: [id number] Interpretation SEE OTHER REPORT OF SAME DATE. Dictated by: RADIOLOGY, DEPARTMENT O Electronically signed by: RADIOLOGY, DEPARTMENT 10/13/2008 20:44 Transcribed: 10/13/2008 18:56 AMK Procedure Note Radiology, Radiologist - 10/13/2008 [facility] [address] [place], [place] [address] Admit Date: 10/08/2008 NASEEM BESS Sex: F Admit Prov: BRANDAN JARVIS Date: 1950 Primary Care Prov: ANKUR AVILES CMRN: [id number] Room: [facility] [address] 1 SSN: [id number] IMAGING SERVICES Ordering Prov: BRANDAN JARVIS Interpretation SEE OTHER REPORT OF SAME DATE. Dictated by: RADIOLOGY, DEPARTMENT O Electronically signed by: RADIOLOGY, DEPARTMENT 10/13/2008 20:44 Transcribed: 10/13/2008 18:56 AMK us Brandan Jarvis MD DIAGNOSTIC IMAGING ORDERABL ES Final Result [facility] MIRIAN CAN# [id number] [address] [place] [address] * US GUIDE VASCULAR ACCESS (10/10/2008 3:53 PM CDT) Anatomical Region Laterality Modality Other 10/10/2008 3:53 PM CDT Narrative 10/13/2008 9:59 PM CDT [facility] [address] [place], [place] [address] Admit Date: 10/08/2008 NASEEM BESS Sex: F Admit Prov: BRANDAN JARVIS Date: 1950 Primary Care Prov: ANKUR AVILES CMRN: [id number] Room: [address] [place] [address] 1 SSN: [id number] IMAGING SERVICES Ordering Prov: BRANDAN JARVIS Accession Number: [id number] Interpretation SEE OTHER REPORT OF SAME DATE. Dictated by: RADIOLOGY, DEPARTMENT O Electronically signed by: RADIOLOGY, DEPARTMENT 10/13/2008 20:44 Transcribed: 10/13/2008 18:56 AMK Procedure Note Radiology, Radiologist - 10/13/2008 [facility] [address] [place], [place] [address] Admit Date: 10/08/2008 NASEEM BESS Sex: F Admit Prov: BRANDAN JARVIS Date: 1950 Primary Care Prov: ANKUR AVILES CMRN: [id number] Room: 5 531 1 SSN: [id number] IMAGING SERVICES Ordering Prov: BRANDAN JARVIS Interpretation SEE OTHER REPORT OF SAME DATE. Dictated by: RADIOLOGY, DEPARTMENT O Electronically signed by: RADIOLOGY, DEPARTMENT 10/13/2008 20:44 Transcribed: 10/13/2008 18:56 AMK us Brandan Jarvis MD ORDERABLES Final Resul t * IR VENOUS ACCESS (10/10/2008 3:53 PM CDT) Anatomical Region Laterality Modality Other 10/10/2008 3:53 PM CDT Narrative 10/12/2008 7:54 AM CDT [place] [address] [place], [place] [address] Admit Date: 10/08/2008 NASEEM BESS Sex: F Admit Prov: BRANDAN JARVIS Date: 1950 Primary Care Prov: AVILES ANKUR L CMRN: [id number] Room: [address] [place] [address] SSN: [id number] IMAGING SERVICES Ordering Prov: N/A Accession Number: [id number] Interpretation ULTRASOUND AND FLUOROSCOPIC GUIDED PICC PLACEMENT History: Diverticulitis, requiring long-term intravenous access for antibiotic therapy. Technique: Risks and benefits of the procedure were discussed with the patient and informed consent was obtained. The patient's left upper arm was prepped and draped in usual sterile fashion. Lidocaine was used to anesthetize the skin and subcutaneous tissues. Under direct ultrasound guidance, a needle was advanced into the left brachial vein. A guidewire was advanced centrally under fluoroscopic guidance. A peel-away sheath was placed over the guidewire. Through the peel-away sheath, a 44 cm, 5 Danish single-lumen PICC line was advanced centrally. Fluoroscopy confirmed catheter placement at the cavoatrial junction. The catheter was flushed and a sterile dressing was applied. The patient tolerated the procedure well without immediate complications. Impression: Status post ultrasound and fluoroscopic guided PICC placement. . Dictated by: FABRIZIO WEI 10/12/2008 07:51 Electronically signed by: FABRIZIO WEI 10/12/2008 07:52 Procedure Note Fabrizio Wei MD - 10/12/2008 [place] [address] [place], [place] [address] Admit Date: 10/08/2008 NASEEM BESS Sex: F Admit Prov: JOSE JARVISORY Erickson Date: 1950 Primary Care Prov: ANKUR AVILES CMRN: [id number] Room: [address] [place] [address] SSN: [id number] IMAGING SERVICES Ordering Prov: N/A Interpretation ULTRASOUND AND FLUOROSCOPIC GUIDED PICC PLACEMENT History: Diverticulitis, requiring long-term intravenous access for antibiotic therapy. Technique: Risks and benefits of the procedure were discussed withthe patient and informed consent was obtained. The patient's left upperarm was prepped and draped in usual sterile fashion. Lidocaine was used to anesthetize the skin and subcutaneous tissues. Under directultrasound guidance, a needle was advanced into the left brachial vein. Aguidewire was advanced centrally under fluoroscopic guidance. A peel-awaysheath was placed over the guidewire. Through the peel-away sheath, a 44 cm, 5French single-lumen PICC line was advanced centrally. Fluoroscopyconfirmed catheter placement at the cavoatrial junction. The catheter wasflushed and a sterile dressing was applied. The patient tolerated the procedurewell without immediate complications. Impression: Status post ultrasound and fluoroscopic guided PICCplacement. . Dictated by: FABRIZIO WEI 10/12/2008 07:51 Electronically signed by: FABRIZIO WEI 10/12/2008 07:52 us Brandan Jarvis MD IR ORDERABLES Final Resul t * (ABNORMAL) POC GLUCOSE (10/10/2008 11:54 AM CDT) GLUCOSE POC 110(H) 65 - 99 mg/dL [facility] CLIA LICENSE [id number] [facility] Venous blood specimen (specimen) 10/10/2008 11:54 AM CDT 10/10/2008 11:54 AM CDT us Brandan Jarvis MD POINT OF CARE TESTING Final Result [facility] CLIA# [id number] [address] [place] [address] * (ABNORMAL) C-REACTIVE PROTEIN (10/10/2008 5:20 AM CDT) CRP 27.4(H) 0.0 - 0.8 mg/dL [facility] Blood specimen (specimen) 10/10/2008 5:20 AM CDT 10/10/2008 6:25 AM CDT Brandan Jarvis MD CHEMISTRY ORDERABLES Edited [facility] CLIA# [id number] [address] [place] [address] * ANAEROBIC/AEROBIC CULTURE W GRAM STAIN (10/09/2008 3:00 PM CDT) GRAM STAIN No organisms seen Many WBC's seen [facility] PRELIMINARY REPORT No growth 48 hours [facility] FINAL REPORT No growth 5 days [facility] Specimen from abscess (specimen) ENTIRE PELVIS / Unknown 10/09/2008 3:00 PM CDT 10/09/2008 3:50 PM CDT Brandan Jarvis MD MICROBIOLOGY - GENERAL [facility] Final Result [facility] CLIA# [id number] [address] [place] [address] * XR CONSULTATION (10/09/2008 1:56 PM CDT) 10/09/2008 1:56 PM CDT Narrative [facility] - 10/09/2008 4:23 PM CDT [facility] [address] [place], [place] [address] Admit Date: 10/08/2008 NASEEM BESS Sex: F Admit Prov: BRANDAN JARVIS Date: 1950 Primary Care Prov: ANKUR AVILES CMRN: [id number] Room: [address] [place] [address] 1 SSN: [id number] IMAGING SERVICES Ordering Prov: N/A Accession Number: [id number] Interpretation Exam: Procedure note of a CT directed abscess aspiration. History: Pelvic abscess. Medication: None. Anesthesia: 1% lidocaine. Contrast: None. Following obtaining informed consent the patient was was placed on the CT table in a supine position. Preliminary scans were obtained for localization for a skin entry site. A left anterior approach was selected. The skin was prepped and draped in the usual fashion and 1% lidocaine was used for local anesthesia. Under CT direction a 18 gauge trocar needle was introduced into the patient's previously described pelvic abscess and through this needle approximately 20 cc of pus was aspirated. The needle was then removed. The patient tolerated the procedure well and there were no immediate complications. . Dictated by: LAKIA VILLANUEVA 10/09/2008 16:21 Electronically signed by: LAKIA VILLANUEVA 10/09/2008 16:22 Procedure Note Lakia Villanueva MD - 10/09/[address] [address] Admit Date: 10/08/2008 NASEEM BESS Sex: F Admit Prov: BRANDAN JARVIS Date: 1950 Primary Care Prov: ANKRU AVILES CMRN: [id number] Room: [address] [place] [address] SSN: [id number] IMAGING SERVICES Ordering Prov: N/A Interpretation Exam: Procedure note of a CT directed abscess aspiration. History: Pelvic abscess. Medication: None. Anesthesia: 1% lidocaine. Contrast: None. Following obtaining informed consent the patient was was placed onthe CT table in a supine position. Preliminary scans were obtained for localization for a skin entry site. A left anterior approach wasselected. The skin was prepped and draped in the usual fashion and 1% lidocainewas used for local anesthesia. Under CT direction a 18 gauge trocarneedle was introduced into the patient's previously described pelvic abscessand through this needle approximately 20 cc of pus was aspirated. Theneedle was then removed. The patient tolerated the procedure well and therewere no immediate complications. . Dictated by: LAKIA VILLANUEVA 10/09/2008 16:21 Electronically signed by: LAKIA VILLANUEVA 10/09/2008 16:22 us Brandan Jarvis MD DIAGNOSTIC IMAGING ORDERABL ES Final Result [facility] CLIA# [id number] [address] [place] [address] * CT GUIDED ASPIRATION (10/09/2008 1:56 PM CDT) Anatomical Region Laterality Modality Other 10/09/2008 1:56 PM CDT Narrative 10/09/2008 4:24 PM CDT [facility] [address] [place], [place] [address] Admit Date: 10/08/2008 NASEEM BESS Sex: F Admit Prov: BRANDAN JARVIS Date: 1950 Primary Care Prov: AVILES ANKUR L CMRN: [id number] Room: [address] [place] [address] SSN: [id number] IMAGING SERVICES Ordering Prov: N/A Accession Number: [id number] Interpretation Exam: Radiology report a CT directed abscess aspiration. History: Pelvic abscess. Under CT direction a 18-gauge trocar needle was inserted into the patient's previously described pelvic abscess by the left anterior approach and approximately 20 cc of pus was aspirated. See procedure note of same day for details of procedure. . Dictated by: LAKIA VILLANUEVA 10/09/2008 16:22 Electronically signed by: LAKIA VILLANUEVA 10/09/2008 16:23 Procedure Note Lakia Villanueva MD - 10/09/2008 [facility] [address] [place], [place] [address] Admit Date: 10/08/2008 NASEEM BESS: F Admit Prov: BRANDAN JARVIS Date: 1950 Primary Care Prov: ANKUR AVILES CMRN: [id number] Room: [address] [place] [address] SSN: [id number] IMAGING SERVICES Ordering Prov: N/A Interpretation Exam: Radiology report a CT directed abscess aspiration. History: Pelvic abscess. Under CT direction a 18-gauge trocar needle was inserted into thepatient's previously described pelvic abscess by the left anterior approachand approximately 20 cc of pus was aspirated. See procedure note of sameday for details of procedure. . Dictated by: LAKIA VILLANUEVA 10/09/2008 16:22 Electronically signed by: LAKIA VILLANUEVA 10/09/2008 16:[address] ORDERABLES Final Resul t * (ABNORMAL) C-REACTIVE PROTEIN (10/09/2008 6:00 AM CDT) CRP 33.4(H) 0.0 - 0.8 mg/dL [facility] Blood specimen (specimen) 10/09/2008 6:00 AM CDT 10/09/2008 6:53 AM CDT us Brandan Jarvis MD CHEMISTRY ORDERABLES Edited [facility] IA# [id number] [address] [facility] [address] [place] [address] * (ABNORMAL) BASIC METABOLIC PANEL (10/09/2008 6:00 AM CDT) CO2 28 22 - 30 mmol/L [facility] GLUCOSE 131(H) 65 - 99 mg/dL [facility] POTASSIUM 4.0 3.5 - 4.9 mmol/L [facility] CALCIUM 8.2(L) 8.6 - 10.2 mg/dL [facility] SODIUM 135 135 - 145 mmol/L [facility] CREATININE 1.04(H) 0.51 - 0.95 mg/dL [facility] BUN 6 6 - 20 mg/dL [facility] CHLORIDE 99 96 - 108 mmol/L [facility] GFR, >60 >=60 mL/min/1. 7 sq meter [facility] GFR 54(L) >=60 mL/min/1. 7 sq meter [facility] Comment: Modification of Diet in Renal Disease (MDRD) study formula. Estimated GFR rate interpretative information for both Americans and non- Americans is available on the [facility] Intranet at: [email or web address] Select: Lab Policies and Procedures Select: Reference Ranges - GFR Blood specimen (specimen) 10/09/2008 6:00 AM CDT 10/09/2008 6:53 AM CDT us Brandan Jarvis MD CHEMISTRY ORDERABLES Edited [facility] CLIA# [id number] [address] [place] [address] * (ABNORMAL) CBC WITH DIFFERENTIAL (10/09/2008 6:00 AM CDT) HEMOGLOBIN 10.5(L) 11.8 - 14.8 g/dL [facility] RDW 13.7 11.5 - 14.5 % [facility] WBC 11.2(H) 4.0 - 9.8 K/uL [facility] MCH 29.4 27.2 - 32.6 pg [facility] MPV 10.0 9.3 - 12.4 fL [facility] HEMATOCRIT 32.4(L) 35.5 - 44.0 % [facility] RDW-STDEV 45.8 37.1 - 48.7 fL [facility] RBC 3.57(L) 3.90 - 4.90 M/uL [facility] MCHC 32.4 31.5 - 35.5 % [facility] MCV 90.8 82.0 - 99.0 fL [facility] PLATELETS 277 140 - 350 K/uL [facility] EOSINOPHILS 0 0 - 7 % [facility] EOSINOPHIL ABSOLUTE 0.04 0.00 - 0.70 K/uL [facility] LYMPHOCYTES 20 16 - 45 % [facility] LYMPHOCYTE ABSOLUTE 2.21 0.70 - 4.50 K/uL [facility] BASOPHILS 0 0 - 2 % [facility] BASOPHILS ABSOLUTE 0.03 0.00 - 0.20 K/uL [facility] MONOCYTES 8 3 - 13 % [facility] MONOCYTE ABSOLUTE 0.84 0.10 - 1.30 K/uL [facility] NEUTROPHILS 72(H) 45 - 70 % [facility] NEUTROPHIL ABSOLUTE 8.11(H) 1.90 - 7.00 K/uL [facility] Blood specimen (specimen) 10/09/2008 6:00 AM CDT 10/09/2008 6:51 AM CDT us Brandan Jarvis MD HEMATOLOGY ORDERABLES Edite d [facility] CLIA# [id number] [address] [facility] [place] [address] * BLOOD CULTURE (10/08/2008 8:30 PM CDT) PRELIMINARY REPORT No growth to date. Culture in progress [facility] FINAL REPORT No growth 5 days [facility] Blood specimen (specimen) 10/08/2008 8:30 PM CDT 10/08/2008 10:19 PM CDT Brandan Jarvis MD MICROBIOLOGY [facility] [email or web address]] RERE HOWARD Final Result Performing Organization Address [facility] de Phone Number INTERFACE SYSTEM Refer to clinic/hospital department [facility] CLIA# [id number] [address] [place] [address] * BLOOD CULTURE (10/08/2008 8:14 PM CDT) PRELIMINARY REPORT No growth to date. Culture in progress [facility] FINAL REPORT No growth 5 days [facility] Blood specimen (specimen) 10/08/2008 8:14 PM CDT 10/08/2008 10:18 PM CDT Brandan Jarvis MD [facility] RERE HOWARD Final Result Performing Organization Address [facility] Phone Number INTERFACE SYSTEM Refer to clinic/hospital department [facility] CLIA# [id number] [address] [place] [address] * (ABNORMAL) PT AND APTT (10/08/2008 7:29 PM CDT) PROTIME 15.7(H) 12.7 - 15.1 Seconds [facility] INR 1.2(H) 0.9 - 1.1 [facility] Comment: INR Therapeutic Range: Adult: 2.0 - 3.0 for pulmonary embolism or prophylaxis against venous thrombosis or systemic embolization. 2.0 - 3.0 for patients with tissue heart valves. 2.5 - 3.5 for patients with mechanical heart valves or post ND. Pediatric (12 years and under): 1.5 - 3.0 Although the target range in children is not well established, INR values of 1.5 - 3.0 are recommended for most patients. Higher values have been used in children with prosthetic cardiac valves and hereditary clotting disorders. [place] (<3 days) therapeutic ranges have not been established. PTT 33.8 24.4 - 36.4 Seconds [facility] Comment: PTT Therapeutic Range: Heparin Level PTT (seconds) <0.10 units/mL <53 0.10 - 0.30 units/mL 53 - 67 0.30 - 0.70 units/mL* 67 - 95* 0.70 - 1.00 units/mL 95 - 116 *corresponds to therapeutic range for unfractionated heparin Blood specimen (specimen) 10/08/2008 7:29 PM CDT 10/08/2008 7:47 PM CDT us Brandan Jarvis MD HEMATOLOGY ORDERABLES Edite d [facility] CLIA# [id number] [address] [place] [place] [address] * CT ABDOMEN PELVIS W CONTRAST (10/08/2008 10:00 AM CDT) Anatomical Region Laterality Modality Abdomen Other 10/08/2008 10:0 0 AM CDT Narrative 10/08/2008 10:38 AM CDT [facility] [address] [place], [place] [address] Admit Date: 10/08/2008 NASEEM BESS Justina Sex: F Admit Prov: FLAVIO DRIVER Date: 1950 Primary Care Prov: ANKUR AVILES CMRN: [id number] Room: ER-A SSN: [id number] IMAGING SERVICES Ordering Prov: N/A Accession Number: [id number] Interpretation CT abdomen and pelvis, 10/08/2008 Indication: Left lower quadrant abdominal pain Technique: Multislice helical axial with oral and intravenous contrast Findings: There are 3 scattered hepatic hypodense lesions measuring 8 mm or less which are too small to accurately characterize. These are seen within the left hepatic lobe lateral segment, within the left hepatic lobe medial segment adjacent to the gallbladder, and within the right hepatic lobe posterior segment. No enhancing liver lesion is seen. The spleen, gallbladder, biliary system, pancreas, and adrenal glands are normal. The right kidney is normal. There is symmetric enhancement of the kidneys. There is asymmetric delayed excretion by the left kidney with moderate left hydroureteronephrosis. Two 9 mm or less renal cystlike lesions are noted which are too small to accurately characterize. No definite enhancing renal mass is seen. There is no perinephric inflammatory stranding. No definite distal ureteral calculus is identified. Oral contrast passes into the rectum excluding a complete obstruction. Within the left lower quadrant, there is asymmetric relatively long segment colonic bowel wall thickening. There is sigmoid diverticulosis. There is a moderate amount of left lower quadrant inflammatory fat stranding. There is a heterogenous multiseptated rim-enhancing fluid collection with several small foci of air internally compatible with abscess. This measures 7.3 cm craniocaudal and 5.1 x 3.4 cm transverse. The ureter passes immediately adjacent to this inflammatory change. The uterus is slightly displaced towards the right. The ovaries are not clearly identified. There is no lymphadenopathy. Small foci of mesenteric free air are also seen. There is no significant free pelvic fluid. There is extensive atherosclerotic aortic calcification without evidence of aneurysm. Image lung bases demonstrate no acute infiltrate. There is a noncalcified 3 mm pulmonary nodule in the right middle lobe on image 5. No acute osseous abnormalities are seen. Impression: 1. Left lower quadrant abscess, sigmoid colon diverticulosis, and bowel wall thickening of the sigmoid colon. The favored diagnosis is diverticulitis with abscess formation. 2. Left hydroureteronephrosis with delayed left renal excretion. The distal ureter passes through the inflammation and these changes may be reactive to the left lower quadrant process. Findings reviewed with Dr. Nix at the time of dictation. . Dictated by: NOMAN ROCA 10/08/2008 10:20 Electronically signed by: NOMAN ROCA 10/08/2008 10:37 Procedure Note Noman oRca MD - 10/08/2008 [facility] [address] [place], [place] [address] Admit Date: 10/08/2008 NASEEM BESS Sex: F Admit Prov: ER, AUTHORIZED P Date: 1950 Primary Care Prov: ANKUR AVILES CMRN: [id number] Room: [facility] SSN: [id number] IMAGING SERVICES Ordering Prov: N/A Interpretation CT abdomen and pelvis, 10/08/2008 Indication: Left lower quadrant abdominal pain Technique: Multislice helical axial with oral and intravenouscontrast Findings: There are 3 scattered hepatic hypodense lesions measuring 8mm or less which are too small to accurately characterize. These are seenwithin the left hepatic lobe lateral segment, within the left hepatic lobemedial segment adjacent to the gallbladder, and within the right hepaticlobe posterior segment. No enhancing liver lesion is seen. The spleen, gallbladder, biliary system, pancreas, and adrenal glands are normal.The right kidney is normal. There is symmetric enhancement of thekidneys. There is asymmetric delayed excretion by the left kidney withmoderate left hydroureteronephrosis. Two 9 mm or less renal cystlike lesions arenoted which are too small to accurately characterize. No definite enhancingrenal mass is seen. There is no perinephric inflammatory stranding. Nodefinite distal ureteral calculus is identified. Oral contrast passes into the rectum excluding a completeobstruction. Within the left lower quadrant, there is asymmetric relatively longsegment colonic bowel wall thickening. There is sigmoid diverticulosis. Thereis a moderate amount of left lower quadrant inflammatory fat stranding.There is a heterogenous multiseptated rim-enhancing fluid collection withseveral small foci of air internally compatible with abscess. This measures7.3 cm craniocaudal and 5.1 x 3.4 cm transverse. The ureter passesimmediately adjacent to this inflammatory change. The uterus is slightlydisplaced towards the right. The ovaries are not clearly identified. There isno lymphadenopathy. Small foci of mesenteric free air are also seen.There is no significant free pelvic fluid. There is extensive atheroscleroticaortic calcification without evidence of aneurysm. Image lung bases demonstrate no acute infiltrate. There is anoncalcified 3 mm pulmonary nodule in the right middle lobe on image 5. No acuteosseous abnormalities are seen. Impression: 1. Left lower quadrant abscess, sigmoid colon diverticulosis, andbowel wall thickening of the sigmoid colon. The favored diagnosis is diverticulitis with abscess formation. 2. Left hydroureteronephrosis with delayed left renal excretion. Thedistal ureter passes through the inflammation and these changes may bereactive to the left lower quadrant process. Findings reviewed with Dr. Nix at the time of dictation. . Dictated by: NOMAN ROCA 10/08/2008 10:20 Electronically signed by: NOMAN ROCA 10/08/2008 10:[address] ORDERABLES Final Result * (ABNORMAL) C-REACTIVE PROTEIN (10/08/2008 7:50 AM CDT) Pathologist [facility] CRP 25.5(H) 0.0 - 0.8 mg/dL [facility] Blood specimen (specimen) 10/08/2008 7:50 AM CDT 10/08/2008 7:54 AM CDT Alon Nix MD CHEMISTRY ORDERABLES Edited [facility] CLIA# [id number] [address] [facility] [place] [address] * (ABNORMAL) COMPREHENSIVE METABOLIC PANEL (10/08/2008 7:50 AM CDT) Pathologist [facility] CALCIUM 9.2 8.6 - 10.2 mg/dL [facility] CHLORIDE 96 96 - 108 mmol/L [facility] ALBUMIN 3.6 3.4 - 4.8 g/dL [facility] CREATININE 1.01(H) 0.51 - 0.95 mg/dL [facility] SODIUM 133(L) 135 - 145 mmol/L [facility] ALT 17 0 - 31 U/L [facility] ALKALINE PHOSPHATASE 82 35 - 104 U/L [facility] BILIRUBIN TOTAL 0.5 0.2 - 1.0 mg/dL [facility] CO2 25 22 - 30 mmol/L [facility] TOTAL PROTEIN 7.9 6.3 - 8.6 g/dL [facility] POTASSIUM 4.0 3.5 - 4.9 mmol/L [facility] GLUCOSE 128(H) 65 - 99 mg/dL [facility] AST 16 12 - 32 U/L [facility] BUN 11 6 - 20 mg/dL [facility] GFR, >60 >=60 mL/min/1. 7 sq meter [facility] GFR 56(L) >=60 mL/min/1. 7 sq meter [facility] Comment: Modification of Diet in Renal Disease (MDRD) study formula. Estimated GFR rate interpretative information for both Americans and non- Americans is available on the [facility] Intranet at: [email or web address] Select: Lab Policies and Procedures Select: Reference Ranges - GFR Blood specimen (specimen) 10/08/2008 7:50 AM CDT 10/08/2008 7:54 AM CDT Alon Nix MD CHEMISTRY ORDERABLES Edited [facility] CLIA# [id number] [address] [facility] [place] [address] * (ABNORMAL) CBC WITH DIFFERENTIAL (10/08/2008 7:50 AM CDT) [facility] 33.5 31.5 - 35.5 % [facility] MPV 9.8 9.3 - 12.4 fL [facility] RBC 3.93 3.90 - 4.90 M/uL [facility] RDW-STDEV 44.9 37.1 - 48.7 fL [facility] MCV 89.6 82.0 - 99.0 fL [facility] HEMOGLOBIN 11.8 11.8 - 14.8 g/dL [facility] PLATELETS 330 140 - 350 K/uL [facility] WBC 12.7(H) 4.0 - 9.8 K/uL [facility] MCH 30.0 27.2 - 32.6 pg [facility] RDW 13.6 11.5 - 14.5 % [facility] HEMATOCRIT 35.2(L) 35.5 - 44.0 % [facility] BASOPHILS 0 0 - 2 % [facility] BASOPHILS ABSOLUTE 0.03 0.00 - 0.20 K/uL [facility] MONOCYTES 7 3 - 13 % [facility] MONOCYTE ABSOLUTE 0.85 0.10 - 1.30 K/uL [facility] NEUTROPHILS 76(H) 45 - 70 % [facility] NEUTROPHIL ABSOLUTE 9.68(H) 1.90 - 7.00 K/uL [facility] EOSINOPHILS 0 0 - 7 % [facility] EOSINOPHIL ABSOLUTE 0.05 0.00 - 0.70 K/uL [facility] LYMPHOCYTES 16 16 - 45 % [facility] LYMPHOCYTE ABSOLUTE 2.07 0.70 - 4.50 K/uL [facility] Blood specimen (specimen) 10/08/2008 7:50 AM CDT 10/08/2008 7:54 AM CDT us Alon Nix MD HEMATOLOGY ORDERABLES Edited [facility] CLIA# [id number] [address] [place] [address] * (ABNORMAL) URINALYSIS (10/08/2008 7:36 AM CDT) SPECIFIC GRAVITY UA 1.021 1.001 - 1.035 [facility] GLUCOSE UA Negative Negative [facility] BLOOD UA Trace(A) Negative [facility] Comment:Results confirmed by 2nd methodology. COLOR UA Yellow [facility] NITRITE UA Negative Negative [facility] BACTERIA UA 1+(A) None Seen /HPF [facility] UROBILINOGEN UA <1 <=1 mg/dL [facility] PH UA 6.0 5.0 - 8.0 [facility] WBC UA 1 0 - 5 /HPF [facility] KETONES UA Negative Negative [facility] CLARITY UA Clear Clear [facility] BILIRUBIN UA Negative Negative [facility] PROTEIN UA Trace(A) Negative [facility] EPITHELIAL CELLS, URINE 2-5 /HPF [facility] LEUKOCYTE ESTERASE UA Negative Negative [facility] RBC UA 3 0 - 4 /HPF [facility] Comment:Verified by repeat a nalysis. 10/08/2008 7:36 AM CDT 10/08/2008 11:20 AM CDT Alon Nix MD URINE ORDERABLES Final Resul t [facility] CLIA# [id number] [address] [facility] [place] [address] * URINALYSIS WITH REFLEX CULTURE (10/08/2008 7:36 AM CDT) URINE CULTURE ORDER Not indicated [facility] Comment: ansiCriteria for a reflex culture include one or more of the following: Abnormal nitrite, leukocyte esterase, WBCs or RBCs. Lack of qualifying criteria does not exclude the possiblity of a urinary tract infection. Dilute urine, drug interference, etc. may decrease the sensitivity of the criteria analytes. 10/08/2008 7:36 AM CDT 10/08/2008 11:20 AM CDT us Alon Nix MD URINE ORDERABLES Final Resul t [facility] CLIA# [id number] [address] [place] [place] [address] documented in this encounter Visit Diagnoses Not on filedocumented in this encounter Care Teams Hall Worker Relationship Specialty Start Date End Date Ankur Aviles MD [address] [place] [id number] PCP - General 10/12/08 documented as of this encounter
[2024-05-24 08:21] LABS: Basophils Absolute Auto 0.1 K/mm3 (0.0-0.1); Basophils Percent Auto 1.3 % (0.2-1.2); Eosinophils Absolute Auto 0.2 K/mm3 (0-0.3); Eosinophils Percent Auto 2.9 % (0-4.4); Hematocrit 41.8 % (37.0-47.0); Hemoglobin 13.2 g/dL (12.0-15.0); Immature Granulocyte Absolute 0.03 K/mm3 (0.00-0.031); Immature Granulocyte Percent A 0.5 % (0-0.5); Lymphocytes Absolute Auto 1.98 K/mm3 (0.9-3.2); Lymphocytes Percent Auto 33.4 % (18.3-44.2); Mean Corpuscular HGB Conc 31.6 g/dl (32-36); Mean Corpuscular Hemoglobin 29.8 pg (26-34); Mean Corpuscular Volume 94.4 fl (80-100); Mean Platelet Volume 10.1 fl (7.4-10.4); Monocytes Absolute Auto 0.5 K/mm3 (0.1-0.6); Monocytes Percent Auto 9.1 % (2.6-8.5); Neutrophils Absolute Auto 3.1 K/mm3 (1.3-6.7); Neutrophils Percent Auto 52.8 % (45.5-73.1); Platelet Count Result 237 k/mm3 (150-375); Red Blood Count 4.43 M/mm3 (4.2-5.4); Red Cell Distribution Width 14.7 % (11.5-14.5); White Blood Count 5.9 K/mm3 (4.5-10.0)
[2024-05-24 08:26] LABS: Add Urine Microscopic? YES; Appearance Urine Cloudy (Clear); Bacteria Urine 4+ /hpf; Bilirubin Urine Negative (Negative); Blood Urine Negative (Negative); Color Urine Yellow (Yellow); Glucose Urine UA Negative (Negative); Ketones Urine Negative (Negative); Leukocyte Esterase Ur 2+ LEU/UL (Negative); Nitrate Urine Negative (Negative); Non Pathogenic Casts 0-2; Protein Urine Negative (Negative); RBC Urine 0-2 /hpf (0-2); Specific Grav Ur 1.015 (1.001-1.035); Squamous Epithelial Cell Urine None Seen /hpf (Few); Urobilinogen Urine 0.2 mg/dL (<2.0); WBC Urine >100 /hpf (0-3); pH Urine 5.5 (5.0-9.0)
[2024-05-24 08:38] LABS: Albumin Level 4.4 g/dL (3.5-5.1); Anion Gap 11 mmol/L (4-12); Blood Urea Nitrogen 33 mg/dL (7-17); Calcium 8.7 mg/dL (8.4-10.2); Carbon Dioxide 25 mmol/L (22-30); Chloride 104 mmol/L (98-107); Estimated Glomerular Filt Rate 30; Glucose 142 mg/dL (65-110); Phosphorus 3.7 mg/dL (2.5-4.5); Potassium 4.3 mmol/L (3.4-5.0); Sodium 140 mmol/L (137-145)
== END 2024-05-24 06:46 | disposition home or self-care (01) ==
PROVIDERS: PCP Family Medicine
DX: I12.9 Hypertensive chronic kidney disease with stage 1 through stage 4 chronic kidney disease, or unspecified chronic kidney disease (principal); N18.30 Chronic kidney disease, stage 3 unspecified; M19.90 Unspecified osteoarthritis, unspecified site
CPT/HCPCS: 36415; 80069; 81001; 85025; 87077; 87086; 87186

== ENCOUNTER 2024-08-22 06:49 | Outpatient (CLI) | payer MEDICARE, SELFPAY ==
--- OUTSIDE RECORDS SUMMARY | 2024-08-22 06:56 | XMS_ITS | Encounter Summary ---
Author Organization [employer] Address [address] [place] [address] Care Team Providers Care Charge Manager Name Role Phone Ankur Aviles MD Primary Care Provider [phone] Encounter Details Date Type Department Care Team [...] on file Legal Sex Female 5:46 AM IMPLEMENTATION ADVISOR Gender Identity Not on file Sexual Orientation [...] out C. difficile associated diarrhea or colitis. [facility] 10/13/2008 3:20 PM CDT 10/13/2008 3:41 PM CDT Brandan Jarvis MD MICROBIOLOGY - [facility] Final Result INTERFACE SYSTEM Refer to clinic/hospital department [facility] CLIA# [id number] [address] [place] [address] * CT ABDOMEN PELVIS W CONTRAST (10/13/2008 1:02 PM CDT) Anatomical Region Laterality Modality Abdomen Other 10/13/2008 1:02 PM CDT Narrative 10/13/2008 6:20 PM CDT [facility] [address] [place], [place] [address] Admit Date: 10/08/2008 NASEEM BESS Justina Sex: F Admit Prov: BRANDAN JARVIS Date: 1950 Primary Care Prov: ANKUR AVILES Yuni CMRN: [id number] Room: [address] [place] [address] SSN: [id number] IMAGING SERVICES Ordering Prov: N/A Accession Number: [id number] Interpretation CT ABDOMEN AND PELVIS WITH IV [...] SJ Procedure Note Mila Dolan - 10/13/2008 [facility] [address] [place], [place] [address] Admit Date: 10/08/2008 NASEEM BESS Sex: F Admit Prov: BRANDAN JARVIS Date: 1950 Primary Care Prov: ANKUR AVILES CMRN: [id number] Room: [address] [place] [address] SSN: [id number] IMAGING SERVICES Ordering Prov: N/A Interpretation CT [...] C-REACTIVE PROTEIN (10/12/2008 5:47 AM CDT) Pathologist [facility] CRP 8.0(H) 0.0 - 0.8 mg/dL [facility] Blood specimen (specimen) 10/12/2008 5:47 AM CDT 10/12/2008 5:55 AM CDT Brandan Jarvis MD CHEMISTRY ORDERABLES Final Result [facility] CLIA# [id number] [address] [facility] [address] * (ABNORMAL) CBC WITH DIFFERENTIAL (10/12/2008 5:47 AM CDT) Pathologist [facility] RDW 13.6 11.5 - 14.5 % [facility] WBC 4.7 4.0 - 9.8 K/uL [facility] MCH 29.2 27.2 - 32.6 pg [facility] MPV 9.6 9.3 - 12.4 fL [facility] HEMATOCRIT 29.3(L) 35.5 - 44.0 % [facility] RDW-STDEV 45.3 37.1 - 48.7 fL [facility] RBC 3.25(L) 3.90 - 4.90 M/uL [facility] MCHC 32.4 31.5 - 35.5 % [facility] MCV 90.2 82.0 - 99.0 fL [facility] PLATELETS 285 140 - 350 K/uL [facility] HEMOGLOBIN 9.5(L) 11.8 - 14.8 g/dL [facility] LYMPHOCYTES 42 16 - 45 % [facility] LYMPHOCYTE ABSOLUTE 1.94 0.70 - 4.50 K/uL [facility] BASOPHILS 1 0 - 2 % [facility] BASOPHILS ABSOLUTE 0.04 0.00 - 0.20 K/uL [facility] MONOCYTES 10 3 - 13 % [facility] MONOCYTE ABSOLUTE 0.45 0.10 - 1.30 K/uL [facility] NEUTROPHILS 44(L) 45 - 70 % [facility] NEUTROPHIL ABSOLUTE 2.07 1.90 - 7.00 K/uL [facility] EOSINOPHILS 4 0 - 7 % [facility] EOSINOPHIL ABSOLUTE 0.18 0.00 - 0.70 K/uL [facility] Blood specimen (specimen) 10/12/2008 5:47 AM CDT 10/12/2008 5:55 AM CDT us Brandan Jarvis MD HEMATOLOGY ORDERABLES Edite d [facility] CLIA# [id number] [address] [place] [address] * XR CONSULTATION (10/10/2008 3:54 PM CDT) 10/10/2008 3:54 PM CDT Narrative [facility] - 10/13/2008 9:59 PM CDT [facility] [address] [place], [place] [address] Admit Date: 10/08/2008 MARIA ALEJANDRA NASEEM Horn Sex: F Admit Prov: BRANDAN JARVIS Date: 1950 Primary Care Prov: ANKUR AVILES CMRN: [id number] Room: [address] [place] [address] 1 SSN: [id number] IMAGING SERVICES Ordering Prov: BRANDAN JARVIS Accession Number: [id number] Interpretation The procedure was performed by Radiology Department nursing staff. Dictated by: RADIOLOGY, DEPARTMENT O Electronically signed by: RADIOLOGY, DEPARTMENT 10/13/2008 20:44 Transcribed: 10/13/2008 18:56 AMK Procedure Note Radiology, Radiologist - 10/13/2008 [facility] [address] [place], [place] [address] Admit Date: 10/08/2008 NASEEM BESS Sex: F Admit Prov: BRANDAN JARVIS Date: 1950 Primary Care Prov: ANKUR AVILES CMRN: [id number] Room: [address] [place] [address] 1 SSN: [id number] IMAGING SERVICES Ordering Prov: BRANDAN JARVIS Interpretation The procedure was performed by Radiology Department nursing staff. Dictated by: RADIOLOGY, DEPARTMENT O Electronically signed by: RADIOLOGY, DEPARTMENT 10/13/2008 20:44 Transcribed: 10/13/2008 18:56 AMK us Brandan Jarvis MD DIAGNOSTIC IMAGING ORDERABL ES Final Result [facility] CLIA# [id number] [address] [place] [address] * XR CONSULTATION (10/10/2008 3:53 PM CDT) 10/10/2008 3:53 PM CDT Narrative [facility] - 10/13/2008 9:59 PM CDT [facility] [address] [place], [place] [address] Admit Date: 10/08/2008 NASEEM BESS Sex: F Admit Prov: BRANDAN JARVIS Date: 1950 Primary Care Prov: ANKUR AVILES CMRN: [id number] Room: [address] [place] [address] 1 SSN: [id number] IMAGING SERVICES Ordering Prov: BRANDAN JARVIS Accession Number: [id number] Interpretation SEE OTHER REPORT OF SAME DATE. Dictated by: RADIOLOGY, DEPARTMENT O Electronically signed by: RADIOLOGY, DEPARTMENT 10/13/2008 20:44 Transcribed: 10/13/2008 18:56 AMK Procedure Note Radiology, Radiologist - 10/13/2008 [facility] [address] [place], [place] [address] Admit Date: 10/08/2008 NASEEM BESS Sex: F Admit Prov: BRANDAN JARVIS Date: 1950 Primary Care Prov: ANKUR AVILES CMRN: [id number] Room: [facility] [address] 1 SSN: [id number] IMAGING SERVICES Ordering Prov: BRANDAN JARVIS Interpretation SEE OTHER REPORT OF SAME DATE. Dictated by: RADIOLOGY, DEPARTMENT O Electronically signed by: RADIOLOGY, DEPARTMENT 10/13/2008 20:44 Transcribed: 10/13/2008 18:56 AMK us Brandan Jarvis MD DIAGNOSTIC IMAGING ORDERABL ES Final Result [facility] CAN# [id number] [address] [place] [address] * US GUIDE VASCULAR ACCESS (10/10/2008 3:53 PM CDT) Anatomical Region Laterality Modality Other 10/10/2008 3:53 PM CDT Narrative 10/13/2008 9:59 PM CDT [facility] [address] [place], [place] [address] Admit Date: 10/08/2008 NASEEM BESS Sex: F Admit Prov: BRANDAN JARVIS Date: 1950 Primary Care Prov: ANKUR AVILES CMRN: [id number] Room: [address] [place] [address] 1 SSN: [id number] IMAGING SERVICES Ordering Prov: BRANDAN JARVIS Accession Number: [id number] Interpretation SEE OTHER REPORT OF SAME DATE. Dictated by: RADIOLOGY, DEPARTMENT O Electronically signed by: RADIOLOGY, DEPARTMENT 10/13/2008 20:44 Transcribed: 10/13/2008 18:56 AMK Procedure Note Radiology, Radiologist - 10/13/2008 [facility] [address] [place], [place] [address] Admit Date: 10/08/2008 NASEEM BESS Sex: F Admit Prov: BRANDAN JARVIS Date: 1950 Primary Care Prov: ANKUR AVILES CMRN: [id number] Room: 5 531 1 SSN: [id number] IMAGING SERVICES Ordering Prov: BRANDAN JARVIS Interpretation SEE OTHER REPORT OF SAME DATE. Dictated by: RADIOLOGY, DEPARTMENT O Electronically signed by: RADIOLOGY, DEPARTMENT 10/13/2008 20:44 Transcribed: 10/13/2008 18:56 AMK us Brandan Jarvis MD ORDERABLES Final Resul t * IR VENOUS ACCESS (10/10/2008 3:53 PM CDT) Anatomical Region Laterality Modality Other 10/10/2008 3:53 PM CDT Narrative 10/12/2008 7:54 AM CDT [place] [address] [place], [place] [address] Admit Date: 10/08/2008 NASEEM BESS Sex: F Admit Prov: BRANDAN JARVIS Date: 1950 Primary Care Prov: AVILES ANKUR L CMRN: [id number] Room: [address] [place] [address] SSN: [id number] IMAGING SERVICES Ordering Prov: N/A Accession Number: [id number] Interpretation ULTRASOUND AND FLUOROSCOPIC GUIDED PICC PLACEMENT [...] the peel-away sheath, a 44 cm, 5 Beninese single-lumen PICC line was advanced centrally. Fluoroscopy confirmed catheter placement at the cavoatrial junction. The catheter was flushed and a sterile dressing was applied. The patient tolerated the procedure well without immediate complications. Impression: Status post ultrasound and fluoroscopic guided PICC placement. . Dictated by: FABRIZIO WEI 10/12/2008 07:51 Electronically signed by: FABRIZIO WEI 10/12/2008 07:52 Procedure Note Fabrizio Wei MD - 10/12/2008 [place] [address] [place], [place] [address] Admit Date: 10/08/2008 NASEEM BESS Sex: F Admit Prov: JOSE JARVISORY Erickson Date: 1950 Primary Care Prov: ANKUR AVILES CMRN: [id number] Room: [address] [place] [address] SSN: [id number] IMAGING SERVICES Ordering Prov: N/A Interpretation ULTRASOUND [...] GLUCOSE POC 110(H) 65 - 99 mg/dL [facility] CLIA LICENSE [id number] [facility] Venous blood specimen (specimen) 10/10/2008 11:54 AM CDT 10/10/2008 11:54 AM CDT us Brandan Jarvis MD POINT OF CARE TESTING Final Result [facility] CLIA# [id number] [address] [place] [address] * (ABNORMAL) C-REACTIVE PROTEIN (10/10/2008 5:20 AM CDT) CRP 27.4(H) 0.0 - 0.8 mg/dL [facility] Blood specimen (specimen) 10/10/2008 5:20 AM CDT 10/10/2008 6:25 AM CDT Brandan Jarvis MD CHEMISTRY ORDERABLES Edited [facility] CLIA# [id number] [address] [place] [address] * ANAEROBIC/AEROBIC CULTURE W GRAM STAIN (10/09/2008 3:00 PM CDT) GRAM STAIN No organisms seen Many WBC's seen [facility] PRELIMINARY REPORT No growth 48 hours [facility] FINAL REPORT No growth 5 days [facility] Specimen from abscess (specimen) ENTIRE PELVIS / Unknown 10/09/2008 3:00 PM CDT 10/09/2008 3:50 PM CDT Brandan Jarvis MD MICROBIOLOGY - GENERAL [facility] Final Result [facility] CLIA# [id number] [address] [place] [address] * XR CONSULTATION (10/09/2008 1:56 PM CDT) 10/09/2008 1:56 PM CDT Narrative [facility] - 10/09/2008 4:23 PM CDT [facility] [address] [place], [place] [address] Admit Date: 10/08/2008 NASEEM BESS Sex: F Admit Prov: BRANDAN AJRVIS Date: 1950 Primary Care Prov: ANKUR AVILES CMRN: [id number] Room: [address] [place] [address] 1 SSN: [id number] IMAGING SERVICES Ordering Prov: N/A Accession Number: [id number] Interpretation Exam: Procedure note of a CT [...] Procedure Note Lakia Villanueva MD - 10/09/[address] [address] Admit Date: 10/08/2008 NASEEM BESS Sex: F Admit Prov: BRANDAN JARVIS Date: 1950 Primary Care Prov: ANKUR AVILES CMRN: [id number] Room: [address] [place] [address] SSN: [id number] IMAGING SERVICES Ordering Prov: N/A Interpretation Exam: [...] MD DIAGNOSTIC IMAGING ORDERABL ES Final Result [facility] CLIA# [id number] [address] [place] [address] * CT GUIDED ASPIRATION (10/09/2008 1:56 PM CDT) Anatomical Region Laterality Modality Other 10/09/2008 1:56 PM CDT Narrative 10/09/2008 4:24 PM CDT [facility] [address] [place], [place] [address] Admit Date: 10/08/2008 NASEEM BESS Sex: F Admit Prov: BRANDAN JARVIS Date: 1950 Primary Care Prov: AVILES ANKUR L CMRN: [id number] Room: [address] [place] [address] SSN: [id number] IMAGING SERVICES Ordering Prov: N/A Accession Number: [id number] Interpretation Exam: Radiology report a CT directed [...] Procedure Note Lakia Villanueva MD - 10/09/2008 [facility] [address] [place], [place] [address] Admit Date: 10/08/2008 NASEEM BESS: F Admit Prov: BRANDAN JARVIS Date: 1950 Primary Care Prov: ANKUR AVILES CMRN: [id number] Room: [address] [place] [address] SSN: [id number] IMAGING SERVICES Ordering Prov: N/A Interpretation Exam: [...] CDT) CRP 33.4(H) 0.0 - 0.8 mg/dL [facility] Blood specimen (specimen) 10/09/2008 6:00 AM CDT 10/09/2008 6:53 AM CDT us Brandan Jarvis MD CHEMISTRY ORDERABLES Edited [facility] IA# [id number] [address] [facility] [address] [place] [address] * (ABNORMAL) BASIC METABOLIC PANEL (10/09/2008 6:00 AM CDT) CO2 28 22 - 30 mmol/L [facility] GLUCOSE 131(H) 65 - 99 mg/dL [facility] POTASSIUM 4.0 3.5 - 4.9 mmol/L [facility] CALCIUM 8.2(L) 8.6 - 10.2 mg/dL [facility] SODIUM 135 135 - 145 mmol/L [facility] CREATININE 1.04(H) 0.51 - 0.95 mg/dL [facility] BUN 6 6 - 20 mg/dL [facility] CHLORIDE 99 96 - 108 mmol/L [facility] GFR, >60 >=60 mL/min/1. 7 sq meter [facility] GFR 54(L) >=60 mL/min/1. 7 sq meter [facility] Comment: Modification of Diet in Renal Disease (MDRD) study formula. Estimated GFR rate interpretative information for both Americans and non- Americans is available on the [facility] Intran[facility] at: [email or web address] Select: Lab Policies and Procedures Select: Reference Ranges - GFR Blood specimen (specimen) 10/09/2008 6:00 AM CDT 10/09/2008 6:53 AM CDT us Brandan Jarvis MD CHEMISTRY ORDERABLES Edited [facility] CLIA# [id number] [address] [place] [address] * (ABNORMAL) CBC WITH DIFFERENTIAL (10/09/2008 6:00 AM CDT) HEMOGLOBIN 10.5(L) 11.8 - 14.8 g/dL [facility] RDW 13.7 11.5 - 14.5 % [facility] WBC 11.2(H) 4.0 - 9.8 K/uL [facility] MCH 29.4 27.2 - 32.6 pg [facility] MPV 10.0 9.3 - 12.4 fL [facility] HEMATOCRIT 32.4(L) 35.5 - 44.0 % [facility] RDW-STDEV 45.8 37.1 - 48.7 fL [facility] RBC 3.57(L) 3.90 - 4.90 M/uL [facility] MCHC 32.4 31.5 - 35.5 % [facility] MCV 90.8 82.0 - 99.0 fL [facility] PLATELETS 277 140 - 350 K/uL [facility] EOSINOPHILS 0 0 - 7 % [facility] EOSINOPHIL ABSOLUTE 0.04 0.00 - 0.70 K/uL [facility] LYMPHOCYTES 20 16 - 45 % [facility] LYMPHOCYTE ABSOLUTE 2.21 0.70 - 4.50 K/uL [facility] BASOPHILS 0 0 - 2 % [facility] BASOPHILS ABSOLUTE 0.03 0.00 - 0.20 K/uL [facility] MONOCYTES 8 3 - 13 % [facility] MONOCYTE ABSOLUTE 0.84 0.10 - 1.30 K/uL [facility] NEUTROPHILS 72(H) 45 - 70 % [facility] NEUTROPHIL ABSOLUTE 8.11(H) 1.90 - 7.00 K/uL [facility] Blood specimen (specimen) 10/09/2008 6:00 AM CDT 10/09/2008 6:51 AM CDT us Brandan Jarvis MD HEMATOLOGY ORDERABLES Edite d [facility] CLIA# [id number] [address] [facility] [place] [address] * BLOOD CULTURE (10/08/2008 8:30 PM CDT) PRELIMINARY REPORT No growth to date. Culture in progress [facility] FINAL REPORT No growth 5 days [facility] Blood specimen (specimen) 10/08/2008 8:30 PM CDT 10/08/2008 10:19 PM CDT Brandan Jarvis MD MICROBIOLOGY [facility] Final Result Performing Organization Address [facility] [address] [facility] de Phone Number INTERFACE SYSTEM Refer to clinic/hospital department [facility] CLIA# [id number] [address] [place] [address] * BLOOD CULTURE (10/08/2008 8:14 PM CDT) PRELIMINARY REPORT No growth to date. Culture in progress [facility] FINAL REPORT No growth 5 days [facility] Blood specimen (specimen) 10/08/2008 8:14 PM CDT 10/08/2008 10:18 PM CDT Brandan Jarvis MD [facility] Final Result Performing Organization Address [facility] Phone Number INTERFACE SYSTEM Refer to clinic/hospital department [facility] CLIA# [id number] [address] [place] [address] * (ABNORMAL) PT AND APTT (10/08/2008 7:29 PM CDT) PROTIME 15.7(H) 12.7 - 15.1 Seconds [facility] INR 1.2(H) 0.9 - 1.1 [facility] Comment: INR Therapeutic Range: Adult: 2.0 - 3.0 for pulmonary embolism or prophylaxis against venous thrombosis or systemic embolization. 2.0 - 3.0 for patients with tissue heart valves. 2.5 - 3.5 for patients with mechanical heart valves or post [place]. Pediatric (12 years and under): 1.5 - 3.0 Although the target range in children is not well established, INR values of 1.5 - 3.0 are recommended for most patients. Higher values have been used in children with prosthetic cardiac valves and hereditary clotting disorders. (<3 days) therapeutic ranges have not been established. PTT 33.8 24.4 - 36.4 Seconds [facility] Comment: PTT Therapeutic Range: Heparin Level PTT (seconds) <0.10 units/mL <53 0.10 - 0.30 units/mL 53 - 67 0.30 - 0.70 units/mL* 67 - 95* 0.70 - 1.00 units/mL 95 - 116 *corresponds to therapeutic range for unfractionated heparin Blood specimen (specimen) 10/08/2008 7:29 PM CDT 10/08/2008 7:47 PM CDT us Brandan Jarvis MD HEMATOLOGY ORDERABLES Edite d [facility] CLIA# [id number] [address] [place] [address] * CT ABDOMEN PELVIS W CONTRAST (10/08/2008 10:00 AM CDT) Anatomical Region Laterality Modality Abdomen Other 10/08/2008 10:0 0 AM CDT Narrative 10/08/2008 10:38 AM CDT [facility] [address] [place], [place] [address] Admit Date: 10/08/2008 NASEEM BESS Justina Sex: F Admit Prov: FLAVIO DRIVER Date: 1950 Primary Care Prov: ANKUR AVILES CMRN: [id number] Room: ER-A SSN: [id number] IMAGING SERVICES Ordering Prov: N/A Accession Number: [id number] Interpretation CT abdomen and pelvis, 10/08/2008 Indication: [...] NOMAN ROCA 10/08/2008 10:37 Procedure Note Noman Roca MD - 10/08/2008 [facility] [address], [place] [address] Admit Date: 10/08/2008 NASEEM BESS Sex: F Admit Prov: ER, AUTHORIZED P Date: 1950 Primary Care Prov: ANKUR AVILES CMRN: [id number] Room: [facility] SSN: [id number] IMAGING SERVICES Ordering Prov: N/A Interpretation CT [...] C-REACTIVE PROTEIN (10/08/2008 7:50 AM CDT) Pathologist [facility] CRP 25.5(H) 0.0 - 0.8 mg/dL [facility] Blood specimen (specimen) 10/08/2008 7:50 AM CDT 10/08/2008 7:54 AM CDT Alon Nix MD CHEMISTRY ORDERABLES Edited [facility] CLIA# [id number] [address] [facility] [place] [address] * (ABNORMAL) COMPREHENSIVE METABOLIC PANEL (10/08/2008 7:50 AM CDT) Pathologist [facility] CALCIUM 9.2 8.6 - 10.2 mg/dL [facility] CHLORIDE 96 96 - 108 mmol/L [facility] ALBUMIN 3.6 3.4 - 4.8 g/dL [facility] CREATININE 1.01(H) 0.51 - 0.95 mg/dL [facility] SODIUM 133(L) 135 - 145 mmol/L [facility] ALT 17 0 - 31 U/L [facility] ALKALINE PHOSPHATASE 82 35 - 104 U/L [facility] BILIRUBIN TOTAL 0.5 0.2 - 1.0 mg/dL [facility] CO2 25 22 - 30 mmol/L [facility] TOTAL PROTEIN 7.9 6.3 - 8.6 g/dL [facility] POTASSIUM 4.0 3.5 - 4.9 mmol/L [facility] GLUCOSE 128(H) 65 - 99 mg/dL [facility] AST 16 12 - 32 U/L [facility] BUN 11 6 - 20 mg/dL [facility] GFR, >60 >=60 mL/min/1. 7 sq meter [facility] GFR 56(L) >=60 mL/min/1. 7 sq meter [facility] Comment: Modification of Diet in Renal Disease (MDRD) study formula. Estimated GFR rate interpretative information for both Americans and non- Americans is available on the [facility] Intran[facility] at: [email or web address] Select: Lab Policies and Procedures Select: Reference Ranges - GFR Blood specimen (specimen) 10/08/2008 7:50 AM CDT 10/08/2008 7:54 AM CDT Alon Nix MD CHEMISTRY ORDERABLES Edited [facility] CLIA# [id number] [address] [facility] [address] [facility] [place] [address] * (ABNORMAL) CBC WITH DIFFERENTIAL (10/08/2008 7:50 AM CDT) [facility] 33.[facility] 31.5 - 35.5 % [facility] MPV 9.8 9.3 - 12.4 fL [facility] RBC 3.93 3.90 - 4.90 M/uL [facility] RDW-STDEV 44.9 37.1 - 48.7 fL [facility] MCV 89.6 82.0 - 99.0 fL [facility] HEMOGLOBIN 11.8 11.8 - 14.8 g/dL [facility] PLATELETS 330 140 - 350 K/uL [facility] WBC 12.7(H) 4.0 - 9.8 K/uL [facility] MCH 30.0 27.2 - 32.6 pg [facility] RDW 13.6 11.5 - 14.5 % [facility] HEMATOCRIT 35.2(L) 35.5 - 44.0 % [facility] BASOPHILS 0 0 - 2 % [facility] BASOPHILS ABSOLUTE 0.03 0.00 - 0.20 K/uL [facility] MONOCYTES 7 3 - 13 % [facility] MONOCYTE ABSOLUTE 0.85 0.10 - 1.30 K/uL [facility] NEUTROPHILS 76(H) 45 - 70 % [facility] NEUTROPHIL ABSOLUTE 9.68(H) 1.90 - 7.00 K/uL [facility] EOSINOPHILS 0 0 - 7 % [facility] EOSINOPHIL ABSOLUTE 0.05 0.00 - 0.70 K/uL [facility] LYMPHOCYTES 16 16 - 45 % [facility] LYMPHOCYTE ABSOLUTE 2.07 0.70 - 4.50 K/uL [facility] Blood specimen (specimen) 10/08/2008 7:50 AM CDT 10/08/2008 7:54 AM CDT us Alon Nix MD HEMATOLOGY ORDERABLES Edited [facility] CLIA# [id number] [address] [place] [address] * (ABNORMAL) URINALYSIS (10/08/2008 7:36 AM CDT) SPECIFIC GRAVITY UA 1.021 1.001 - 1.035 [facility] GLUCOSE UA Negative Negative [facility] BLOOD UA Trace(A) Negative [facility] Comment:Results confirmed by 2nd methodology. COLOR UA Yellow [facility] NITRITE UA Negative Negative [facility] BACTERIA UA 1+(A) None Seen /HPF [facility] UROBILINOGEN UA <1 <=1 mg/dL [facility] PH UA 6.0 5.0 - 8.0 [facility] WBC UA 1 0 - 5 /HPF [facility] KETONES UA Negative Negative [facility] CLARITY UA Clear [facility] BILIRUBIN UA Negative Negative [facility] PROTEIN UA Trace(A) Negative [facility] EPITHELIAL CELLS, URINE 2-5 /HPF [facility] LEUKOCYTE ESTERASE UA Negative Negative [facility] RBC UA 3 0 - 4 /HPF [facility] Comment:Verified by repeat a nalysis. 10/08/2008 7:36 AM CDT 10/08/2008 11:20 AM CDT Alon Nix MD URINE ORDERABLES Final Resul t [facility] CLIA# [id number] [address] [place] [id number] * URINALYSIS WITH REFLEX CULTURE (10/08/2008 7:36 AM CDT) URINE CULTURE ORDER Not indicated [facility] Comment: ansiCriteria for a reflex culture [...] Nix MD URINE ORDERABLES Final Resul t [facility] CLIA# [id number] [address] [place] [address] documented in this encounter Visit Diagnoses Not on filedocumented in this encounter Care Teams Charge Manager Relationship Specialty Start Date End Date Ankur Aviles MD [address] [place] [id number] PCP - General 10/12/08 documented as of this encounter
--- OUTSIDE RECORDS SUMMARY | 2024-08-22 06:56 | XMS_ITS | Referral Summary ---
Author Organization [facility] [address] Address [address] [place] [address] Care Team Providers Care Shelving Supervisor Name Role Phone Ankur Aviles MD Primary Care Provider [phone] Allergies No known active allergies Medications amLODIPine (NORVASC) 10 mg tablet Take 1 tablet (10 mg total) by mouth daily 08/10/2023 Active atorvastatin (LIPITOR) 20 mg tablet Take 1 tablet (20 mg total) by mouth daily 08/17/2023 Active escitalopram (LEXAPRO) 10 mg tablet Take 1 tablet (10 mg total) by mouth daily Active metFORMIN (GLUCOPHAGE) 500 mg tablet Take 1 tablet (500 mg total) by mouth 2 (two) times a day 09/02/2023 Active metoprolol XL (TOPROL-XL) 100 mg 24 hr tablet Take 1 tablet (100 mg total) by mouth daily Active olmesartan-hydro chlorothiazide (BENICAR HCT) 40-12.5 mg per tablet Take 1 tablet by mouth daily 08/23/2023 Active azithromycin (ZITHROMAX) 250 mg tabletIndication s:Lower respiratory infection (e.g., bronchitis, pneumonia, pneumonitis, pulmonitis) Take 2 tablets the first day, then 1 tablet daily for 4 days. 6 tablet 10/15/2023 Active benzonatate (TESSALON) 200 mg capsuleIndicatio ns:Lower respiratory infection (e.g., bronchitis, pneumonia, pneumonitis, pulmonitis) Take 1 capsule (200 mg total) by mouth 3 (three) times a day as needed for cough 30 capsule 10/15/2023 Active Active Problems No known active problems Social History Tobacco Use Types Packs/Day Years Used Date Smoking Tobacco: Never Assessed Comments Unknown Sex and Gender Information Value Date Recorded Sex Assigned at Not on file Legal Sex Female 10:50 AM CDT Gender Identity Not on file Sexual Orientation Not on file Last Filed Vital Signs Vital Sign Reading Time Taken Comments Blood Pressure 122/74 10/15/2023 12:46 PM CDT Pulse 68 10/15/2023 12:46 PM CDT Temperature 36.6 C (97.9 F) 10/15/2023 12:46 PM CDT Respiratory Rate 20 10/15/2023 12:46 PM CDT Oxygen Saturation 98% 10/15/2023 12:46 PM CDT Inhaled Oxygen Concentration - - Weight 99.8 kg (220 lb) 10/15/2023 12:46 PM CDT Height 170.2 cm (5' 7) 10/15/2023 12:46 PM CDT Body Mass Index 34.46 10/15/2023 12:46 PM CDT Plan of Treatment Not on file Insurance MEDICARE [employer] Care Teams Shelving Supervisor Relationship Specialty Start Date End Date Ankur Aviles MD [address] [place] [address] PCP - General Family Medicine 10/15/23
--- OUTSIDE RECORDS SUMMARY | 2024-08-22 06:57 | XMS_ITS | Clinical Summary ---
Author Organization [facility] [address] Address [address] [place] [address] Care Team Providers Care Upholsterer Inside Name Role Phone Ankur Aviles MD Primary Care Provider [phone] Allergies No known active allergies Medications amLODIPine [...] on file Sexual Orientation Not on file Obstetrics History Last Filed Vital Signs Vital Sign Reading [...] 10/15/2023 12:46 PM CDT Plan of Treatment Health Maintenance Due Date Last Done Comments Depression Screening 1948 Fall Risk Assessment 1950 Hepatitis C Screening 1950 Osteoporosis Screening-Bone Density Scan 1948 DTaP/Tdap/Td Vaccine (1 - Tdap) 1959 Hepatitis B Screening 1966 Pneumococcal vaccine 65+ (1 of 1 - PCV) 1998 Zoster Vaccine (1 of 2) 1998 Well Visit 65+ 2013 Covid-19 Vaccine ( season) 2023 03/18/2021, 05/04/2020, 04/13/2020 Influenza Vaccine (Season Ended) 2024 [place] [address] [employer] Care Teams Upholsterer Inside Relationship Specialty Start Date End Date Ankur Aviles MD [address] [place] [address] PCP - General Family Medicine 10/15/23
--- OUTSIDE RECORDS SUMMARY | 2024-08-22 06:57 | XMS_ITS | Clinical Summary ---
Author Organization [facility] Address [address] [place] [address] Phone Care Team Providers Care Resource Manager Name Role Phone Ankur Aviles MD Primary Care Provider [phone] Allergies Active Allergy Reactions Criticality Noted Date [...] on file Legal Sex Female 5:46 AM [employer] Gender Identity Not on file Sexual Orientation [...] 8:14 AM CDT Height 174 cm (5' 8.5) 11/27/2008 7:31 AM CDT Body Mass Index 27.42 11/27/2008 7:31 AM CDT Plan of Treatment Health Maintenance Due Date Last Done Comments DTAP/TDAP/TD VACCINES (1 - Tdap) 1967 PNEUMOCOCCAL VACCINE 50+ YEARS (1 of 2 - PCV) 03/20/18 68 ZOSTER VACCINE (1 of 2) 1998 OSTEOPOROSIS SCREENING 2013 RSV VACCINE (60+ or ) (1 - 1-dose 75+ series) 2023 INFLUENZA VACCINE (#1) 2024 COLORECTAL SCREENING Discontinued 11/27/2008 Colorectal Cancer Screening Discontinued FIT-DNA Q 3 years Discontinued FIT/FOBT Q 1 year Discontinued Flex Sig/CT Colonography Q 5 years Discontinued Insurance [employer] [facility] Address: [facility] [id number] [place] [address] Advance Directives For more information, please contact: [phone] * Full Code (Latest Code Status on File) Date Activated Date Inactivated Comments 11/28/2008 6:54 PM 11/30/2008 6:16 PM * Full Code Date Activated Date Inactivated Comments 11/28/2008 7:59 AM 11/28/2008 6:53 PM * Full Code Date Activated Date Inactivated Comments 11/27/2008 7:21 AM 11/28/2008 2:02 AM Care Teams Resource Manager Relationship Specialty Start Date End Date Ankur Aviles MD [address] [place] [phone] [facility] - General 10/12/08
[2024-08-22 08:18] LABS: Add Urine Microscopic? NO; Appearance Urine Clear (Clear); Glucose Urine UA Negative (Negative); Leukocyte Esterase Ur Negative LEU/UL (Negative); Nitrate Urine Negative (Negative); Specific Grav Ur 1.010 (1.001-1.035)
[2024-08-22 08:22] LABS: Hemoglobin A1C 6.4 % (<5.7)
[2024-08-22 08:38] LABS: Alanine Aminotransferase 35 U/L (6-35); Albumin Level 4.2 g/dL (3.5-5.1); Alkaline Phosphatase 71 U/L (38-126); Anion Gap 10 mmol/L (4-12); Aspartate Amino Transferase 32 U/L (14-36); Bilirubin,Total 0.3 mg/dL (0.2-1.3); Blood Urea Nitrogen 25 mg/dL (7-17); Calcium 8.9 mg/dL (8.4-10.2); Carbon Dioxide 26 mmol/L (22-30); Chloride 104 mmol/L (98-107); Cholesterol 122 mg/dL (0-200); Estimated Glomerular Filt Rate 37; Glucose 131 mg/dL (65-110); HDL Direct 29 mg/dL; Potassium 4.7 mmol/L (3.4-5.0); Sodium 140 mmol/L (137-145); Total Protein 7.8 g/dL (6.3-8.2); Triglycerides 113 mg/dL (<150)
[2024-08-22 09:04] LABS: Thyroid Stimulating Hormone 3.100 uIU/mL (0.465-4.680)
== END 2024-08-22 06:50 | disposition home or self-care (01) ==
PROVIDERS: PCP Family Medicine; Visit Provider Nurse Practitioner
DX: E78.5 Hyperlipidemia, unspecified (principal); E11.22 Type 2 diabetes mellitus with diabetic chronic kidney disease; N18.30 Chronic kidney disease, stage 3 unspecified; R79.89 Other specified abnormal findings of blood chemistry
CPT/HCPCS: 36415; 80053; 80061; 81003; 83036; 84100; 84443

== ENCOUNTER 2024-08-25 09:17 | Outpatient (CLI) | payer MEDICARE, SELFPAY ==
--- OUTSIDE RECORDS SUMMARY | 2024-08-25 09:23 | XMS_ITS | Encounter Summary ---
Author Organization [employer] Address 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 difficile associated diarrhea or colitis. [facility] 10/13/2008 3:20 PM CDT 10/13/2008 3:41 PM CDT Brandan Jarvis MD MICROBIOLOGY - [facility] Final Result INTERFACE SYSTEM Refer to clinic/hospital department [facility] CLIA# [id number] [address] [place] [address] * CT ABDOMEN PELVIS W CONTRAST (10/13/2008 1:02 PM CDT) Anatomical Region Laterality Modality Abdomen Other 10/13/2008 1:02 PM CDT Narrative 10/13/2008 6:20 PM CDT [facility] [address] [place], [place] [address] Admit Date: 10/08/2008 NASEEM BESS Justina Sex: F Admit Prov: BRANDAN JARVIS Date: 1950 Primary Care Prov: ANKUR AVILES Yuni CMRN: [id number] Room: [address] [place] [address] SSN: [id number] IMAGING SERVICES Ordering Prov: N/A Accession Number: [id number] Interpretation CT ABDOMEN AND PELVIS WITH IV [...] Mila Dolan - 10/13/2008 [facility] [address] [place] [place], [place] [address] Admit Date: 10/08/2008 NASEEM BESS Sex: F Admit Prov: BRANDAN JARVIS Date: 1950 Primary Care Prov: ANKUR AVILES CMRN: [id number] Room: [address] [place] [address] SSN: [id number] IMAGING SERVICES Ordering Prov: N/A Interpretation CT [...] C-REACTIVE PROTEIN (10/12/2008 5:47 AM CDT) Pathologist [facility] CRP 8.0(H) 0.0 - 0.8 mg/dL [facility] Blood specimen (specimen) 10/12/2008 5:47 AM CDT 10/12/2008 5:55 AM CDT Brandan Jarvis MD CHEMISTRY ORDERABLES Final Result [facility] CLIA# [id number] [address] [facility] [place] [address] * (ABNORMAL) CBC WITH DIFFERENTIAL (10/12/2008 5:47 AM CDT) Pathologist [facility] RDW 13.6 11.5 - 14.5 % [facility] WBC 4.7 4.0 - 9.8 K/uL [facility] MCH 29.2 27.2 - 32.6 pg [facility] MPV 9.6 9.3 - 12.4 fL [facility] HEMATOCRIT 29.3(L) 35.5 - 44.0 % [facility] RDW-STDEV 45.3 37.1 - 48.7 fL [facility] RBC 3.25(L) 3.90 - 4.90 M/uL [facility] MCHC 32.4 31.5 - 35.5 % [facility] MCV 90.2 82.0 - 99.0 fL [facility] PLATELETS 285 140 - 350 K/uL [facility] HEMOGLOBIN 9.5(L) 11.8 - 14.8 g/dL [facility] LYMPHOCYTES 42 16 - 45 % [facility] LYMPHOCYTE ABSOLUTE 1.94 0.70 - 4.50 K/uL [facility] BASOPHILS 1 0 - 2 % [facility] BASOPHILS ABSOLUTE 0.04 0.00 - 0.20 K/uL [facility] MONOCYTES 10 3 - 13 % [facility] MONOCYTE ABSOLUTE 0.45 0.10 - 1.30 K/uL [facility] NEUTROPHILS 44(L) 45 - 70 % [facility] NEUTROPHIL ABSOLUTE 2.07 1.90 - 7.00 K/uL [facility] EOSINOPHILS 4 0 - 7 % [facility] EOSINOPHIL ABSOLUTE 0.18 0.00 - 0.70 K/uL [facility] Blood specimen (specimen) 10/12/2008 5:47 AM CDT 10/12/2008 5:55 AM CDT us Brandan Jarvis MD HEMATOLOGY ORDERABLES Edite d [facility] CLIA# [id number] [address] [place] [address] * XR CONSULTATION (10/10/2008 3:54 PM CDT) 10/10/2008 3:54 PM CDT Narrative [facility] - 10/13/2008 9:59 PM CDT [facility] [address] [place], [place] [address] Admit Date: 10/08/2008 MARIA ALEJANDRA NASEEM Horn Sex: F Admit Prov: BRANDAN JARVIS Date: 1950 Primary Care Prov: ANKUR AVILES CMRN: [id number] Room: [address] [place] [address] 1 SSN: [id number] IMAGING SERVICES Ordering Prov: BRANDAN JARVIS Accession Number: [id number] Interpretation The procedure was performed by Radiology Department nursing staff. Dictated by: RADIOLOGY, DEPARTMENT O Electronically signed by: RADIOLOGY, DEPARTMENT 10/13/2008 20:44 Transcribed: 10/13/2008 18:56 AMK Procedure Note Radiology, Radiologist - 10/13/2008 [facility] [address] [place], [place] [address] Admit Date: 10/08/2008 NASEEM BESS Sex: F Admit Prov: BRANDAN JARVIS Date: 1950 Primary Care Prov: ANKUR AVILES CMRN: [id number] Room: [address] [place] [address] 1 SSN: [id number] IMAGING SERVICES Ordering Prov: BRANDAN JARVIS Interpretation The procedure was performed by Radiology Department nursing staff. Dictated by: RADIOLOGY, DEPARTMENT O Electronically signed by: RADIOLOGY, DEPARTMENT 10/13/2008 20:44 Transcribed: 10/13/2008 18:56 AMK us Brandan Jarvis MD DIAGNOSTIC IMAGING ORDERABL ES Final Result [facility] CLIA# [id number] [address] [place] [address] * XR CONSULTATION (10/10/2008 3:53 PM CDT) 10/10/2008 3:53 PM CDT Narrative [facility] - 10/13/2008 9:59 PM CDT [facility] [address] [place], [place] [address] Admit Date: 10/08/2008 NASEEM BESS Sex: F Admit Prov: BRANDAN JARVIS Date: 1950 Primary Care Prov: ANKUR AVILES CMRN: [id number] Room: [address] [place] [address] 1 SSN: [id number] IMAGING SERVICES Ordering Prov: BRANDAN JARVIS Accession Number: [id number] Interpretation SEE OTHER REPORT OF SAME DATE. Dictated by: RADIOLOGY, DEPARTMENT O Electronically signed by: RADIOLOGY, DEPARTMENT 10/13/2008 20:44 Transcribed: 10/13/2008 18:56 AMK Procedure Note Radiology, Radiologist - 10/13/2008 [facility] [address] [place], [place] [address] Admit Date: 10/08/2008 NASEEM BESS Sex: F Admit Prov: BRANDAN JARVIS Date: 1950 Primary Care Prov: ANKUR AVILES CMRN: [id number] Room: [facility] [address] 1 SSN: [id number] IMAGING SERVICES Ordering Prov: BRANDAN JARVIS Interpretation SEE OTHER REPORT OF SAME DATE. Dictated by: RADIOLOGY, DEPARTMENT O Electronically signed by: RADIOLOGY, DEPARTMENT 10/13/2008 20:44 Transcribed: 10/13/2008 18:56 AMK us Brandan Jarvis MD DIAGNOSTIC IMAGING ORDERABL ES Final Result [facility] CAN# [id number] [address] [place] [address] * US GUIDE VASCULAR ACCESS (10/10/2008 3:53 PM CDT) Anatomical Region Laterality Modality Other 10/10/2008 3:53 PM CDT Narrative 10/13/2008 9:59 PM CDT [facility] [address] [place], [place] [address] Admit Date: 10/08/2008 NASEEM BESS Sex: F Admit Prov: BRANDAN JARVIS Date: 1950 Primary Care Prov: ANKUR AVILES CMRN: [id number] Room: [address] [place] [address] 1 SSN: [id number] IMAGING SERVICES Ordering Prov: BRANDAN JARVIS Accession Number: [id number] Interpretation SEE OTHER REPORT OF SAME DATE. Dictated by: RADIOLOGY, DEPARTMENT O Electronically signed by: RADIOLOGY, DEPARTMENT 10/13/2008 20:44 Transcribed: 10/13/2008 18:56 AMK Procedure Note Radiology, Radiologist - 10/13/2008 [facility] [address] [place], [place] [address] Admit Date: 10/08/2008 NASEEM BESS Sex: F Admit Prov: BRANDAN JARVIS Date: 1950 Primary Care Prov: ANKUR AVILES CMRN: [id number] Room: 5 531 1 SSN: [id number] IMAGING SERVICES Ordering Prov: BRANDAN JARVIS Interpretation SEE OTHER REPORT OF SAME DATE. Dictated by: RADIOLOGY, DEPARTMENT O Electronically signed by: RADIOLOGY, DEPARTMENT 10/13/2008 20:44 Transcribed: 10/13/2008 18:56 AMK us Brandan Jarvis MD ORDERABLES Final Resul t * IR VENOUS ACCESS (10/10/2008 3:53 PM CDT) Anatomical Region Laterality Modality Other 10/10/2008 3:53 PM CDT Narrative 10/12/2008 7:54 AM CDT [place] [address] [place], [place] [address] Admit Date: 10/08/2008 NASEEM BESS Sex: F Admit Prov: BRANDAN JARVIS Date: 1950 Primary Care Prov: AVILES ANKUR L CMRN: [id number] Room: [address] [place] [address] SSN: [id number] IMAGING SERVICES Ordering Prov: N/A Accession Number: [id number] Interpretation ULTRASOUND AND FLUOROSCOPIC GUIDED PICC PLACEMENT [...] the peel-away sheath, a 44 cm, 5 [place] single-lumen PICC line was advanced centrally. Fluoroscopy confirmed catheter placement at the cavoatrial junction. The catheter was flushed and a sterile dressing was applied. The patient tolerated the procedure well without immediate complications. Impression: Status post ultrasound and fluoroscopic guided PICC placement. . Dictated by: FABRIZIO WEI 10/12/2008 07:51 Electronically signed by: FABRIZIO WEI 10/12/2008 07:52 Procedure Note Fabrizio Wei MD - 10/12/2008 [place] [address] [place], [place] [address] Admit Date: 10/08/2008 NASEEM BESS Sex: F Admit Prov: JOSE JARVISORY Erickson Date: 1950 Primary Care Prov: ANKUR AVILES CMRN: [id number] Room: [address] [place] [address] SSN: [id number] IMAGING SERVICES Ordering Prov: N/A Interpretation ULTRASOUND [...] GLUCOSE POC 110(H) 65 - 99 mg/dL [facility] CLIA LICENSE [id number] [facility] Venous blood specimen (specimen) 10/10/2008 11:54 AM CDT 10/10/2008 11:54 AM CDT us Brandan Jarvis MD POINT OF CARE TESTING Final Result [facility] CLIA# [id number] [address] [place] [address] * (ABNORMAL) C-REACTIVE PROTEIN (10/10/2008 5:20 AM CDT) CRP 27.4(H) 0.0 - 0.8 mg/dL [facility] Blood specimen (specimen) 10/10/2008 5:20 AM CDT 10/10/2008 6:25 AM CDT Brandan Jarvis MD CHEMISTRY ORDERABLES Edited [facility] CLIA# [id number] [address] [place] [address] * ANAEROBIC/AEROBIC CULTURE W GRAM STAIN (10/09/2008 3:00 PM CDT) GRAM STAIN No organisms seen Many WBC's seen [facility] PRELIMINARY REPORT No growth 48 hours [facility] FINAL REPORT No growth 5 days [facility] Specimen from abscess (specimen) ENTIRE PELVIS / Unknown 10/09/2008 3:00 PM CDT 10/09/2008 3:50 PM CDT Brandan Jarvis MD MICROBIOLOGY - GENERAL [facility] Final Result [facility] CLIA# [id number] [address] [place] [address] * XR CONSULTATION (10/09/2008 1:56 PM CDT) 10/09/2008 1:56 PM CDT Narrative [facility] - 10/09/2008 4:23 PM CDT [facility] [address] [place], [place] [address] Admit Date: 10/08/2008 NASEEM BESS Sex: F Admit Prov: BRANDAN JARVIS Date: 1950 Primary Care Prov: ANKUR AVILES CMRN: [id number] Room: [address] [place] [address] 1 SSN: [id number] IMAGING SERVICES Ordering Prov: N/A Accession Number: [id number] Interpretation Exam: Procedure note of a CT [...] Procedure Note Lakia Villanueva MD - 10/09/[address] [address] Admit Date: 10/08/2008 NASEEM BESS Sex: F Admit Prov: BRANDAN JARVIS Date: 1950 Primary Care Prov: ANKUR AVILES CMRN: [id number] Room: [address] [place] [address] SSN: [id number] IMAGING SERVICES Ordering Prov: N/A Interpretation Exam: [...] MD DIAGNOSTIC IMAGING ORDERABL ES Final Result [facility] CLIA# [id number] [address] [place] [address] * CT GUIDED ASPIRATION (10/09/2008 1:56 PM CDT) Anatomical Region Laterality Modality Other 10/09/2008 1:56 PM CDT Narrative 10/09/2008 4:24 PM CDT [facility] [address] [place], [place] [address] Admit Date: 10/08/2008 NASEEM BESS Sex: F Admit Prov: BRANDAN JARVIS Date: 1950 Primary Care Prov: AVILES ANKUR L CMRN: [id number] Room: [address] [place] [address] SSN: [id number] IMAGING SERVICES Ordering Prov: N/A Accession Number: [id number] Interpretation Exam: Radiology report a CT directed [...] Villanueva MD - 10/09/2008 [facility] [address] [place], [place] [address] Admit Date: 10/08/2008 NASEEM BESS: F Admit Prov: BRANDAN JARVIS Date: 1950 Primary Care Prov: ANKUR AVILES CMRN: [id number] Room: [address] [place] [address] SSN: [id number] IMAGING SERVICES Ordering Prov: N/A Interpretation Exam: [...] CDT) CRP 33.4(H) 0.0 - 0.8 mg/dL [facility] Blood specimen (specimen) 10/09/2008 6:00 AM CDT 10/09/2008 6:53 AM CDT us Brandan Jarvis MD CHEMISTRY ORDERABLES Edited [facility] IA# [id number] [address] [facility] [address] [place] [address] * (ABNORMAL) BASIC METABOLIC PANEL (10/09/2008 6:00 AM CDT) CO2 28 22 - 30 mmol/L [facility] GLUCOSE 131(H) 65 - 99 mg/dL [facility] POTASSIUM 4.0 3.5 - 4.9 mmol/L [facility] CALCIUM 8.2(L) 8.6 - 10.2 mg/dL [facility] SODIUM 135 135 - 145 mmol/L [facility] CREATININE 1.04(H) 0.51 - 0.95 mg/dL [facility] BUN 6 6 - 20 mg/dL [facility] CHLORIDE 99 96 - 108 mmol/L [facility] GFR, >60 >=60 mL/min/1. 7 sq meter [facility] GFR 54(L) >=60 mL/min/1. 7 sq meter [facility] Comment: Modification of Diet in Renal Disease (MDRD) study formula. Estimated GFR rate interpretative information for both Americans and non- Americans is available on the [facility] Intranet at: [email or web address] Select: Lab Policies and Procedures Select: Reference Ranges - GFR Blood specimen (specimen) 10/09/2008 6:00 AM CDT 10/09/2008 6:53 AM CDT us Brandan Jarvis MD CHEMISTRY ORDERABLES Edited [facility] CLIA# [id number] [address] [place] [address] * (ABNORMAL) CBC WITH DIFFERENTIAL (10/09/2008 6:00 AM CDT) HEMOGLOBIN 10.5(L) 11.8 - 14.8 g/dL [facility] RDW 13.7 11.5 - 14.5 % [facility] WBC 11.2(H) 4.0 - 9.8 K/uL [facility] MCH 29.4 27.2 - 32.6 pg [facility] MPV 10.0 9.3 - 12.4 fL [facility] HEMATOCRIT 32.4(L) 35.5 - 44.0 % [facility] RDW-STDEV 45.8 37.1 - 48.7 fL [facility] RBC 3.57(L) 3.90 - 4.90 M/uL [facility] MCHC 32.4 31.5 - 35.5 % [facility] MCV 90.8 82.0 - 99.0 fL [facility] PLATELETS 277 140 - 350 K/uL [facility] EOSINOPHILS 0 0 - 7 % [facility] EOSINOPHIL ABSOLUTE 0.04 0.00 - 0.70 K/uL [facility] LYMPHOCYTES 20 16 - 45 % [facility] LYMPHOCYTE ABSOLUTE 2.21 0.70 - 4.50 K/uL [facility] BASOPHILS 0 0 - 2 % [facility] BASOPHILS ABSOLUTE 0.03 0.00 - 0.20 K/uL [facility] MONOCYTES 8 3 - 13 % [facility] MONOCYTE ABSOLUTE 0.84 0.10 - 1.30 K/uL [facility] NEUTROPHILS 72(H) 45 - 70 % [facility] NEUTROPHIL ABSOLUTE 8.11(H) 1.90 - 7.00 K/uL [facility] Blood specimen (specimen) 10/09/2008 6:00 AM CDT 10/09/2008 6:51 AM CDT us Brandan Jarvis MD HEMATOLOGY ORDERABLES Edite d [facility] CLIA# [id number] [address] [facility] [place] [address] * BLOOD CULTURE (10/08/2008 8:30 PM CDT) PRELIMINARY REPORT No growth to date. Culture in progress [facility] FINAL REPORT No growth 5 days [facility] Blood specimen (specimen) 10/08/2008 8:30 PM CDT 10/08/2008 10:19 PM CDT Brandan Jarvis MD MICROBIOLOGY [facility] Final Result Performing Organization Address [facility] de Phone Number INTERFACE SYSTEM Refer to clinic/hospital department [facility] CLIA# [id number] [address] [place] [address] * BLOOD CULTURE (10/08/2008 8:14 PM CDT) PRELIMINARY REPORT No growth to date. Culture in progress [facility] FINAL REPORT No growth 5 days [facility] Blood specimen (specimen) 10/08/2008 8:14 PM CDT 10/08/2008 10:18 PM CDT Brandan Jarvis MD [facility] Final Result Performing Organization Address [facility] Phone Number INTERFACE SYSTEM Refer to clinic/hospital department [facility] CLIA# [id number] [address] [place] [place] [address] * (ABNORMAL) PT AND APTT (10/08/2008 7:29 PM CDT) PROTIME 15.7(H) 12.7 - 15.1 Seconds [facility] INR 1.2(H) 0.9 - 1.1 [facility] Comment: INR Therapeutic Range: Adult: 2.0 - 3.0 for pulmonary embolism or prophylaxis against venous thrombosis or systemic embolization. 2.0 - 3.0 for patients with tissue heart valves. 2.5 - 3.5 for patients with mechanical heart valves or post [place]. Pediatric (12 years and under): 1.5 - 3.0 Although the target range in children is not well established, INR values of 1.5 - 3.0 are recommended for most patients. Higher values have been used in children with prosthetic cardiac valves and hereditary clotting disorders. [place] (<3 days) therapeutic ranges have not been established. PTT 33.8 24.4 - 36.4 Seconds [facility] Comment: PTT Therapeutic Range: Heparin Level PTT (seconds) <0.10 units/mL <53 0.10 - 0.30 units/mL 53 - 67 0.30 - 0.70 units/mL* 67 - 95* 0.70 - 1.00 units/mL 95 - 116 *corresponds to therapeutic range for unfractionated heparin Blood specimen (specimen) 10/08/2008 7:29 PM CDT 10/08/2008 7:47 PM CDT us Brandan Jarvis MD HEMATOLOGY ORDERABLES Edite d [facility] CLIA# [id number] [address] [place] [place] [address] * CT ABDOMEN PELVIS W CONTRAST (10/08/2008 10:00 AM CDT) Anatomical Region Laterality Modality Abdomen Other 10/08/2008 10:0 0 AM CDT Narrative 10/08/2008 10:38 AM CDT [facility] [address] [place], [place] [address] Admit Date: 10/08/2008 NASEEM BESS Justina Sex: F Admit Prov: FLAVIO DRIVER Date: 1950 Primary Care Prov: ANKUR AVILES CMRN: [id number] Room: ER-A SSN: [id number] IMAGING SERVICES Ordering Prov: N/A Accession Number: [id number] Interpretation CT abdomen and pelvis, 10/08/2008 Indication: [...] Procedure Note Noman Roca MD - 10/08/2008 [facility] [address] [place], [place] [address] Admit Date: 10/08/2008 NASEEM BESS Sex: F Admit Prov: ER, AUTHORIZED P Date: 1950 Primary Care Prov: ANKUR AVILES CMRN: [id number] Room: [facility] SSN: [id number] IMAGING SERVICES Ordering Prov: N/A Interpretation CT [...] C-REACTIVE PROTEIN (10/08/2008 7:50 AM CDT) Pathologist [facility] CRP 25.5(H) 0.0 - 0.8 mg/dL [facility] Blood specimen (specimen) 10/08/2008 7:50 AM CDT 10/08/2008 7:54 AM CDT Alon Nix MD CHEMISTRY ORDERABLES Edited [facility] CLIA# [id number] [address] [place] [address] * (ABNORMAL) COMPREHENSIVE METABOLIC PANEL (10/08/2008 7:50 AM CDT) Pathologist [facility] CALCIUM 9.2 8.6 - 10.2 mg/dL [facility] CHLORIDE 96 96 - 108 mmol/L [facility] ALBUMIN 3.6 3.4 - 4.8 g/dL [facility] CREATININE 1.01(H) 0.51 - 0.95 mg/dL [facility] SODIUM 133(L) 135 - 145 mmol/L [facility] ALT 17 0 - 31 U/L [facility] ALKALINE PHOSPHATASE 82 35 - 104 U/L [facility] BILIRUBIN TOTAL 0.5 0.2 - 1.0 mg/dL [facility] CO2 25 22 - 30 mmol/L [facility] TOTAL PROTEIN 7.9 6.3 - 8.6 g/dL [facility] POTASSIUM 4.0 3.5 - 4.9 mmol/L [facility] GLUCOSE 128(H) 65 - 99 mg/dL [facility] AST 16 12 - 32 U/L [facility] BUN 11 6 - 20 mg/dL [facility] GFR, >60 >=60 mL/min/1. 7 sq meter [facility] GFR 56(L) >=60 mL/min/1. 7 sq meter [facility] Comment: Modification of Diet in Renal Disease (MDRD) study formula. Estimated GFR rate interpretative information for both Americans and non- Americans is available on the [facility] Intranet at: [email or web address] Select: Lab Policies and Procedures Select: Reference Ranges - GFR Blood specimen (specimen) 10/08/2008 7:50 AM CDT 10/08/2008 7:54 AM CDT Alon Nix MD CHEMISTRY ORDERABLES Edited [facility] CLIA# [id number] [address] [facility] [address] * (ABNORMAL) CBC WITH DIFFERENTIAL (10/08/2008 7:50 AM CDT) [facility] 33.5 31.5 - 35.5 % [facility] MPV 9.8 9.3 - 12.4 fL [facility] RBC 3.93 3.90 - 4.90 M/uL [facility] RDW-STDEV 44.9 37.1 - 48.7 fL [facility] MCV 89.6 82.0 - 99.0 fL [facility] HEMOGLOBIN 11.8 11.8 - 14.8 g/dL [facility] PLATELETS 330 140 - 350 K/uL [facility] WBC 12.7(H) 4.0 - 9.8 K/uL [facility] MCH 30.0 27.2 - 32.6 pg [facility] RDW 13.6 11.5 - 14.5 % [facility] HEMATOCRIT 35.2(L) 35.5 - 44.0 % [facility] BASOPHILS 0 0 - 2 % [facility] BASOPHILS ABSOLUTE 0.03 0.00 - 0.20 K/uL [facility] MONOCYTES 7 3 - 13 % [facility] MONOCYTE ABSOLUTE 0.85 0.10 - 1.30 K/uL [facility] NEUTROPHILS 76(H) 45 - 70 % [facility] NEUTROPHIL ABSOLUTE 9.68(H) 1.90 - 7.00 K/uL [facility] EOSINOPHILS 0 0 - 7 % [facility] EOSINOPHIL ABSOLUTE 0.05 0.00 - 0.70 K/uL [facility] LYMPHOCYTES 16 16 - 45 % [facility] LYMPHOCYTE ABSOLUTE 2.07 0.70 - 4.50 K/uL [facility] Blood specimen (specimen) 10/08/2008 7:50 AM CDT 10/08/2008 7:54 AM CDT us Alon Nix MD HEMATOLOGY ORDERABLES Edited [facility] CLIA# [id number] [address] [place] [address] * (ABNORMAL) URINALYSIS (10/08/2008 7:36 AM CDT) SPECIFIC GRAVITY UA 1.021 1.001 - 1.035 [facility] GLUCOSE UA Negative Negative [facility] BLOOD UA Trace(A) Negative [facility] Comment:Results confirmed by 2nd methodology. COLOR UA Yellow [facility] NITRITE UA Negative Negative [facility] BACTERIA UA 1+(A) None Seen /HPF [facility] UROBILINOGEN UA <1 <=1 mg/dL [facility] PH UA 6.0 5.0 - 8.0 [facility] WBC UA 1 0 - 5 /HPF [facility] KETONES UA Negative Negative [facility] CLARITY UA Clear Clear [facility] BILIRUBIN UA Negative Negative [facility] PROTEIN UA Trace(A) Negative [facility] EPITHELIAL CELLS, URINE 2-5 /HPF [facility] LEUKOCYTE ESTERASE UA Negative Negative [facility] RBC UA 3 0 - 4 /HPF [facility] Comment:Verified by repeat a nalysis. 10/08/2008 7:36 AM CDT 10/08/2008 11:20 AM CDT Alon Nix MD URINE ORDERABLES Final Resul t [facility] CLIA# [id number] [place] [address] * URINALYSIS WITH REFLEX CULTURE (10/08/2008 7:36 AM CDT) URINE CULTURE ORDER Not indicated [facility] Comment: ansiCriteria for a reflex culture [...] Nix MD URINE ORDERABLES Final Resul t [facility] CLIA# [id number] [place] [address] documented in this encounter Visit Diagnoses Not on filedocumented in this encounter Care Teams Manager Retail Relationship Specialty Start Date End Date Ankur Aviles MD [address] [place] [id number] PCP - General 10/12/08 documented as of this encounter
--- OUTSIDE RECORDS SUMMARY | 2024-08-25 09:24 | XMS_ITS | Clinical Summary ---
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 Gender Identity Not on file Sexual Orientation [...] Sig/CT Colonography Q 5 years Discontinued Insurance [employer] [facility] OPEN ACCESS Advance Directives For more information, please contact: [phone] * Full Code (Latest Code Status on File) Date Activated Date Inactivated Comments 11/28/2008 6:54 PM 11/30/2008 6:16 PM * Full Code Date Activated Date Inactivated Comments 11/28/2008 7:59 AM 11/28/2008 6:53 PM * Full Code Date Activated Date Inactivated Comments 11/27/2008 7:21 AM 11/28/2008 2:02 AM Care Teams Director Data Architecture Relationship Specialty Start Date End Date Ankur Aviles MD [address] [place] [id number] [facility] - General 10/12/08
--- OUTSIDE RECORDS SUMMARY | 2024-08-25 09:24 | XMS_ITS | Clinical Summary ---
Author Organization [facility] [address] Address [address] [place] [address] Care Team Providers Care Refractory Tile Helper Name Role Phone Ankur Aviles MD Primary Care Provider [phone] Allergies No known active allergies Medications amLODIPine [...] Influenza Vaccine (Season Ended) 2024 Insurance MEDICARE [employer] Care Teams Refractory Tile Helper Relationship Specialty Start Date End Date Ankur Aviles MD [address] [place] [address] PCP - General Family Medicine 10/15/23
--- OUTSIDE RECORDS SUMMARY | 2024-08-25 09:24 | XMS_ITS | Referral Summary ---
Author Organization [facility] [address] Address [address] [place] [address] Care Team Providers Care Returner Name Role Phone Ankur Aviles MD Primary Care Provider [phone] Allergies No known active allergies Medications amLODIPine [...] on file Insurance MEDICARE [employer] Care Teams Returner Relationship Specialty Start Date End Date Ankur Aviles MD [address] [place] [address] PCP - General Family Medicine 10/15/23
[2024-08-25 09:34] LABS: Hematocrit 40.1 % (37.0-47.0); Hemoglobin 12.8 g/dL (12.0-15.0); Immature Granulocyte Percent A 0.6 % (0-0.5); Lymphocytes Absolute Auto 2.53 K/mm3 (0.9-3.2); Mean Corpuscular HGB Conc 31.9 g/dl (32-36); Mean Corpuscular Hemoglobin 29.8 pg (26-34); Mean Corpuscular Volume 93.3 fl (80-100); Nucleated Red Blood Cells Absolute Auto 0.000 K/mm3 (0.0-0.012); Nucleated Red Blood Cells Perc 0.0 % (0.0-0.2); Platelet Count Result 218 k/mm3 (150-375); Red Blood Count 4.30 M/mm3 (4.2-5.4); White Blood Count 7.1 K/mm3 (4.5-10.0)
== END 2024-08-25 09:18 | disposition home or self-care (01) ==
LOC: ANHLAB 09:20
PROVIDERS: PCP Family Medicine; Visit Provider Nurse Practitioner
DX: E78.5 Hyperlipidemia, unspecified (principal); E11.22 Type 2 diabetes mellitus with diabetic chronic kidney disease; N18.9 Chronic kidney disease, unspecified; R79.89 Other specified abnormal findings of blood chemistry
CPT/HCPCS: 36415; 85025